=== PATIENT | male | born 1955 | race Caucasian/White ===

== ENCOUNTER 2025-04-08 18:28 | Emergency (ER) | payer BC, MEDICARE ==
--- NOTE | 2025-04-08 18:50 | ED ---
Fever HPI - General Chief Complaint: Fever Stated Complaint: Fall/On blood thinners/Head Injury Time Seen by Provider: 04/08/25 18:49 Source: patient, RN notes reviewed, old records reviewed Mode of arrival: wheelchair Limitations: no limitations - History of Present Illness Initial Comments: This is a 69-year-old male to the ER for evaluation patient was today for evaluation regards to fever history of pneumonia history of weakness increasing weakness altered mental status not feeling well. Mild cough no congestion or runny nose patiently recently had biopsy for prostate cancer having weakness weakness with a near syncopal event syncopal event and a fall. Patient fall hurt left knee complaining of knee pain, Complaint: fever - Related Data Previous Rx's Medication Instructions Recorded Azithromycin [Zithromax] 500 mg PO DAILY #5 tab 04/08/25 Cephalexin [Keflex] 500 mg PO Q6HR #40 cap 04/08/25 Allergies Allergy/AdvReac Type Severity Reaction Status Date / Time No Known Allergies Allergy Verified 04/08/25 18:43 Review of Systems ROS Statement: Those systems with pertinent positive or pertinent negative responses have been documented in the HPI. ROS Other: All systems not noted in ROS Statement are negative. Past Medical History Past Medical History: Diabetes Mellitus, Hyperlipidemia, Hypertension History of Any Multi-Drug Resistant Organisms: None Reported Past Surgical History: Appendectomy Additional Past Surgical History / Comment(s): biopsy for prostate ca. rotator cuff- l. right total knee replacement Past Psychological History: No Psychological Hx Reported Smoking Status: Former smoker Past Alcohol Use History: None Reported Past Drug Use History: None Reported General Exam General appearance: alert, in no apparent distress, anxious Head exam: Present: atraumatic, normocephalic, normal inspection Eye exam: Present: normal appearance, PERRL, EOMI. Absent: scleral icterus, conjunctival injection, periorbital swelling ENT exam: Present: normal exam, mucous membranes moist Neck exam: Present: normal inspection. Absent: tenderness, meningismus, lymphadenopathy Respiratory exam: Present: normal lung sounds bilaterally. Absent: respiratory distress, wheezes, rales, rhonchi, stridor Cardiovascular Exam: Present: regular rate, normal rhythm, normal heart sounds. Absent: systolic murmur, diastolic murmur, rubs, gallop, clicks GI/Abdominal exam: Present: soft, normal bowel sounds. Absent: distended, tenderness, guarding, rebound, rigid Extremities exam: Present: normal inspection, full ROM, normal capillary refill. Absent: tenderness, pedal edema, joint swelling, calf tenderness Back exam: Present: normal inspection Neurological exam: Present: alert, oriented X3, CN II-XII intact Psychiatric exam: Present: normal affect, normal mood Skin exam: Present: warm, dry, intact, normal color. Absent: rash Course Vital Signs 04/08/25 04/08/25 18:33 20:48 Temperature 100.5 F H 98.1 F Pulse Rate 104 H 75 Respiratory 20 18 Rate Blood Pressure 143/77 113/59 O2 Sat by Pulse 94 L 95 Oximetry - Reevaluation(s) Reevaluation #1: 04/08/25 19:45 Medical records reviewed Reevaluation #2: 04/08/25 20:27 Patient's symptoms are improving here in the ER Reevaluation #3: 04/08/25 20:27 Patient informed of results and questions answered Reevaluation #4: Was pt. sent in by a medical professional or institution (, PA, [facility] [employer], urgent care, hospital, or [facility]...) When possible be specific @ -no Did you speak to anyone other than the patient for history (EMS, parent, family, police, friend...)? What history was obtained from this source @ -no Did you review nursing and triage notes (agree or disagree)? Why? @ -agree Are old charts reviewed (outside hosp., previous admission, EMS record, old EKG, old radiological studies, urgent care reports/EKG's, [facility] records)? Report findings @ -yes Differential Diagnosis (chest pain, altered mental status, abdominal pain women, abdominal pain men, vaginal bleeding, weakness, fever, dyspnea, syncope, headache, dizziness, GI bleed, back pain, seizure, CVA, palpatations, mental health, musculoskeletal)? @ -prior EKG interpreted by me (3pts min.). @ -yes X-rays interpreted by me (1pt min.). @ -yes negative for acute disease CT interpreted by me (1pt min.). @ -no U/S interpreted by me (1pt. min.). @ -no What testing was considered but not performed or refused? (CT, X-rays, U/S, labs)? Why? @ -none What meds were considered but not given or refused? Why? @ -none Did you discuss the management of the patient with other professionals (professionals i.e. , PA, [employer], lab, RT, psych nurse, rn social services, house designer, teacher, general service officer, comp field case manager)? Give summary @ -no Was smoking cessation discussed for >3mins.? @ -no Was critical care preformed (if so, how long)? @ -no Were there social determinants of health that impacted care today? How? (Homelessness, low income, unemployed, alcoholism, drug addiction, transportation, low edu. Level, literacy, decrease access to med. care, [facility], rehab)? @ -none Was there de-escalation of care discussed even if they declined (Discuss DNR or withdrawal of care, Hospice)? DNR status @ -no What co-morbidities impacted this encounter? (DM, HTN, Smoking, COPD, CAD, Cancer, CVA, ARF, Chemo, Hep., AIDS, mental health diagnosis, sleep apnea, morbid obesity)? @ -none Was patient admitted / discharged? Hospital course, mention meds given and route, prescriptions, significant lab abnormalities, going to OR and other pertinent info. @ - Undiagnosed new problem with uncertain prognosis? @ -no Drug Therapy requiring intensive monitoring for toxicity (Heparin, Nitro, Insulin, Cardizem)? @ -no Were any procedures done? @ -no Diagnosis/symptom? @ - Acute, or Chronic, or Acute on Chronic? @ -Acute Uncomplicated (without systemic symptoms) or Complicated (systemic symptoms)? @ -Complicated Side effects of treatment? @ -no Exacerbation, Progression, or Severe Exacerbation? @ -exacerbation Poses a threat to life or bodily function? How? (Chest pain, [place], [place], pneumonia, PE, COPD, DKA, ARF, appy, cholecystitis, CVA, Diverticulitis, Homicidal, Suicidal, threat to staff... and all critical care pts) @ -yes Reevaluation #5: Differential Fever: Pneumonia, viral URI, endocarditis, myocarditis, pericarditis, otitis, sinusiti s, peritonsillar Abscess, retropharyngeal Abscess, epiglottitis, peritonitis, appendicitis, Carla cystitis, diverticulitis, hepatitis, colitis, UTI, PID, TOA, pyelonephritis, prostatitis, epididymitis, meningitis, encephalitis, pulmonary embolism, CVA, thyroid storm, pancreatitis, adrenal crisis, cavernous sinus thrombosis, this is not meant to be an all-inclusive list. - Consultations Consultation #1: Spoke with [facility] who agrees to admit this patient Medical Decision Making - Medical Decision Making 69 male to be admitted for significant pneumonia fever with pneumonia - Lab Data Result diagrams: 04/08/25 19:14 04/08/25 19:14 Lab Results 04/08/25 04/08/25 04/08/25 Range/Units 19:14 19:14 19:14 WBC 10.33 H (4.50-10.00) 10*3/uL RBC 5.15 (4.40-5.60) 10*6/uL Hgb 15.0 (13.0-17.0) g/dL Hct 43.0 (39.6-50.0) % MCV 83.5 (80.0-97.0) fL MCH 29.1 (27.0-32.0) pg MCHC 34.9 (32.0-37.0) g/dL Plt Count 348 (140-440) 10*3/uL MPV 9.9 (9.5-12.2) fL Immature Gran % (Auto) 1.1 % Neutrophils % 74.4 % Lymphocytes % 7.6 % Monocytes % 15.3 % Eosinophils % 0.1 % Basophils % 1.5 % Immature Gran # 0.11 H (0.00-0.04) 10*3/uL Neutrophils # 7.69 (1.80-7.70) 10*3/uL Lymphocytes # 0.79 L (0.90-5.00) 10*3/uL Monocytes # 1.58 H (0.20-1.00) 10*3/uL Eosinophils # 0.01 L (0.04-0.35) 10*3/uL Basophils # 0.15 H (0.00-0.10) 10*3/uL PT 10.8 (10.0-12.5) sec INR 1.0 (<1.2) APTT 24.9 (22.0-30.0) sec Sodium (137-145) mmol/L Potassium (3.5-5.1) mmol/L Chloride (98-107) mmol/L Carbon Dioxide (22-30) mmol/L Anion Gap mmol/L BUN (9-20) mg/dL Creatinine (0.66-1.25) mg/dL Est GFR (CKD-EPI)AfAm (>60 ml/min/1.73 sqM) Est GFR (CKD-EPI)NonAf (>60 ml/min/1.73 sqM) Glucose (74-99) mg/dL Plasma Lactic Acid Manjinder (0.7-2.0) mmol/L Calcium (8.4-10.2) mg/dL Phosphorus (2.5-4.5) mg/dL Magnesium (1.6-2.3) mg/dL Total Bilirubin (0.2-1.3) mg/dL AST (17-59) U/L ALT (4-49) U/L Alkaline Phosphatase (38-126) U/L Troponin I (0.000-0.034) ng/mL NT-Pro-B Natriuret Pep pg/mL Total Protein (6.3-8.2) g/dL Albumin (3.5-5.0) g/dL TSH (0.465-4.680) mIU/L Urine Color Urine Appearance (Clear) Urine pH (5.0-8.0) Ur Specific [place] (1.001-1.035) Urine Protein (Negative) Urine Glucose (UA) (Negative) Urine Ketones (Negative) Urine Blood (Negative) Urine Nitrite (Negative) Urine Bilirubin (Negative) Urine Urobilinogen (<2.0) mg/dL Ur Leukocyte Esterase (Negative) Urine RBC (0-5) /hpf Urine WBC (0-5) /hpf Urine Bacteria (None) /hpf Urine Mucus (None) /hpf Influenza Type A (PCR) Not Detected (Not Detectd) Influenza Type B (PCR) Not Detected (Not Detectd) RSV (PCR) Not Detected (Not Detectd) SARS-CoV-2 (PCR) Not Detected (Not Detectd) 04/08/25 04/08/25 04/08/25 Range/Units 19:14 19:14 19:14 WBC (4.50-10.00) 10*3/uL RBC (4.40-5.60) 10*6/uL Hgb (13.0-17.0) g/dL Hct (39.6-50.0) % MCV (80.0-97.0) fL MCH (27.0-32.0) pg MCHC (32.0-37.0) g/dL Plt Count (140-440) 10*3/uL MPV (9.5-12.2) fL Immature Gran % (Auto) % Neutrophils % % Lymphocytes % % Monocytes % % Eosinophils % % Basophils % % Immature Gran # (0.00-0.04) 10*3/uL Neutrophils # (1.80-7.70) 10*3/uL Lymphocytes # (0.90-5.00) 10*3/uL Monocytes # (0.20-1.00) 10*3/uL Eosinophils # (0.04-0.35) 10*3/uL Basophils # (0.00-0.10) 10*3/uL PT (10.0-12.5) sec INR (<1.2) APTT (22.0-30.0) sec Sodium 133 L (137-145) mmol/L Potassium 3.5 (3.5-5.1) mmol/L Chloride 95 L (98-107) mmol/L Carbon Dioxide 28 (22-30) mmol/L Anion Gap 10 mmol/L BUN 23 H (9-20) mg/dL Creatinine 0.81 (0.66-1.25) mg/dL Est GFR (CKD-EPI)AfAm >90 (>60 ml/min/1.73 sqM) Est GFR (CKD-EPI)NonAf 89 (>60 ml/min/1.73 sqM) Glucose 121 H (74-99) mg/dL Plasma Lactic Acid Manjinder 1.7 (0.7-2.0) mmol/L Calcium 10.7 H (8.4-10.2) mg/dL Phosphorus 2.8 (2.5-4.5) mg/dL Magnesium 2.0 (1.6-2.3) mg/dL Total Bilirubin 1.2 (0.2-1.3) mg/dL AST 134 H (17-59) U/L ALT 99 H (4-49) U/L Alkaline Phosphatase 100 (38-126) U/L Troponin I <0.012 (0.000-0.034) ng/mL NT-Pro-B Natriuret Pep 45 pg/mL Total Protein 7.2 (6.3-8.2) g/dL Albumin 4.1 (3.5-5.0) g/dL TSH 0.992 (0.465-4.680) mIU/L Urine Color Urine Appearance (Clear) Urine pH (5.0-8.0) Ur Specific [place] (1.001-1.035) Urine Protein (Negative) Urine Glucose (UA) (Negative) Urine Ketones (Negative) Urine Blood (Negative) Urine Nitrite (Negative) Urine Bilirubin (Negative) Urine Urobilinogen (<2.0) mg/dL Ur Leukocyte Esterase (Negative) Urine RBC (0-5) /hpf Urine WBC (0-5) /hpf Urine Bacteria (None) /hpf Urine Mucus (None) /hpf Influenza Type A (PCR) (Not Detectd) Influenza Type B (PCR) (Not Detectd) RSV (PCR) (Not Detectd) SARS-CoV-2 (PCR) (Not Detectd) 04/08/25 Range/Units 19:29 WBC (4.50-10.00) 10*3/uL RBC (4.40-5.60) 10*6/uL Hgb (13.0-17.0) g/dL Hct (39.6-50.0) % MCV (80.0-97.0) fL MCH (27.0-32.0) pg MCHC (32.0-37.0) g/dL Plt Count (140-440) 10*3/uL MPV (9.5-12.2) fL Immature Gran % (Auto) % Neutrophils % % Lymphocytes % % Monocytes % % Eosinophils % % Basophils % % Immature Gran # (0.00-0.04) 10*3/uL Neutrophils # (1.80-7.70) 10*3/uL Lymphocytes # (0.90-5.00) 10*3/uL Monocytes # (0.20-1.00) 10*3/uL Eosinophils # (0.04-0.35) 10*3/uL Basophils # (0.00-0.10) 10*3/uL PT (10.0-12.5) sec INR (<1.2) APTT (22.0-30.0) sec Sodium (137-145) mmol/L Potassium (3.5-5.1) mmol/L Chloride (98-107) mmol/L Carbon Dioxide (22-30) mmol/L Anion Gap mmol/L BUN (9-20) mg/dL Creatinine (0.66-1.25) mg/dL Est GFR (CKD-EPI)AfAm (>60 ml/min/1.73 sqM) Est GFR (CKD-EPI)NonAf (>60 ml/min/1.73 sqM) Glucose (74-99) mg/dL Plasma Lactic Acid Manjinder (0.7-2.0) mmol/L Calcium (8.4-10.2) mg/dL Phosphorus (2.5-4.5) mg/dL Magnesium (1.6-2.3) mg/dL Total Bilirubin (0.2-1.3) mg/dL AST (17-59) U/L ALT (4-49) U/L Alkaline Phosphatase (38-126) U/L Troponin I (0.000-0.034) ng/mL NT-Pro-B Natriuret Pep pg/mL Total Protein (6.3-8.2) g/dL Albumin (3.5-5.0) g/dL TSH (0.465-4.680) mIU/L Urine Color Yellow Urine Appearance Cloudy (Clear) Urine pH 6.0 (5.0-8.0) Ur Specific [place] 1.021 (1.001-1.035) Urine Protein 1+ H (Negative) Urine Glucose (UA) 2+ H (Negative) Urine Ketones Negative (Negative) Urine Blood Moderate H (Negative) Urine Nitrite Positive (Negative) Urine Bilirubin Negative (Negative) Urine Urobilinogen <2.0 (<2.0) mg/dL Ur Leukocyte Esterase Large H (Negative) Urine RBC 44 H (0-5) /hpf Urine WBC >182 H (0-5) /hpf Urine Bacteria Many H (None) /hpf Urine Mucus Occasional H (None) /hpf Influenza Type A (PCR) (Not Detectd) Influenza Type B (PCR) (Not Detectd) RSV (PCR) (Not Detectd) SARS-CoV-2 (PCR) (Not Detectd) - EKG Data -: EKG Interpreted by Me (EKG is sinus 93 CO 153 QRS 146 QTc 450) - Radiology Data Radiology results: report reviewed (Chest x-ray is positive for pneumonia), image reviewed Disposition Clinical Impression: Fever, Pneumonia, Syncope, Weakness, UTI (urinary tract infection) Disposition: HOME SELF-CARE Condition: Fair Is patient prescribed a controlled substance at d/c from ED?: No Time of Disposition: 20:20
[2025-04-08 19:35] LABS: Basophils # (A) 0.15 10*3/uL (0.00-0.10); Basophils % (A) 1.5 %; Eosinophils # (A) 0.01 10*3/uL (0.04-0.35); Eosinophils % (A) 0.1 %; Lymphocytes # (A) 0.79 10*3/uL (0.90-5.00); Lymphocytes % (A) 7.6 %; MCH 29.1 pg (27.0-32.0); MCHC 34.9 g/dL (32.0-37.0); MCV 83.5 fL (80.0-97.0); Mean Platelet Volume 9.9 fL (9.5-12.2); Monocytes # (A) 1.58 10*3/uL (0.20-1.00); Monocytes % (A) 15.3 %; Neutrophils # (A) 7.69 10*3/uL (1.80-7.70); Neutrophils % (A) 74.4 %; Platelet Count 348 10*3/uL (140-440); RBC 5.15 10*6/uL (4.40-5.60); RDW 14.9 % (11.5-14.5); WBC 10.33 10*3/uL (4.50-10.00)
[2025-04-08] MEDS: SODIUM CHLORIDE 0.9% 1,000 ML IV ONE (19:39)
[2025-04-08] MEDS: ACETAMINOPHEN IV (For NPO) 1,000 MG in EMPTY BAG 1 BAG IVPB STA (19:39)
[2025-04-08 19:56] LABS: Partial Thromboplastin Time 24.9 sec (22.0-30.0); Prothrombin Time 10.8 sec (10.0-12.5)
[2025-04-08 20:03] LABS: ALT 99 U/L (4-49); AST 134 U/L (17-59); African American GFR (CKD) >90 (>60 ml/min/1.73 sqM); Albumin 4.1 g/dL (3.5-5.0); Alkaline Phosphatase 100 U/L (38-126); Anion Gap 10 mmol/L; Blood Urea Nitrogen 23 mg/dL (9-20); Calcium 10.7 mg/dL (8.4-10.2); Carbon Dioxide 28 mmol/L (22-30); Chloride 95 mmol/L (98-107); Glucose 121 mg/dL (74-99); Non-African American GFR(CKD) 89 (>60 ml/min/1.73 sqM); Phosphorus 2.8 mg/dL (2.5-4.5); Potassium 3.5 mmol/L (3.5-5.1); Sodium 133 mmol/L (137-145); Total Bilirubin 1.2 mg/dL (0.2-1.3); Total Protein 7.2 g/dL (6.3-8.2)
[2025-04-08 20:10] LABS: Influenza A Not Detected (Not Detectd); Influenza B Not Detected (Not Detectd); RSV Not Detected (Not Detectd)
[2025-04-08 20:11] LABS: NT-Pro-B-Type Natriuretic Pept 45 pg/mL
[2025-04-08] MEDS: IBUPROFEN IV 800 MG in SODIUM CHLORIDE 0.9% 250 ML IV ONE (20:11)
--- NOTE | 2025-04-08 20:12 | XR ---
EXAMINATION TYPE: XR chest 2V DATE OF EXAM: 04/08/2025 7:33 PM COMPARISON: None CLINICAL INDICATION: Male, 69 years old with history of Weakness; [facility] TECHNIQUE: XR chest 2V Frontal and lateral views of the chest. FINDINGS: Lungs/Pleura: Right lower lobe airspace opacities. There is no evidence of pleural effusion, focal co nsolidation, or pneumothorax. Pulmonary vascularity: Unremarkable. Heart/mediastinum: Cardiomediastinal silhouette is unremarkable. Musculoskeletal: No acute osseous pathology. IMPRESSION: Right lower lobe airspace opacities correlate for pneumonia. [facility], , 04/08/2025 8:10 PM
--- NOTE | 2025-04-08 20:14 | XR ---
EXAMINATION TYPE: XR knee complete RT DATE OF EXAM: 04/08/2025 7:33 PM COMPARISON: None CLINICAL INDICATION: Male, 69 years old with history of PAIN; [facility], pain TECHNIQUE: XR knee complete RT 3 views submitted. FINDINGS: Status post total knee arthroplasty changes with hardware in appropriate alignment and in tact. No evidence of fracture. IMPRESSION: Status post total knee arthroplasty changes with hardware intact and appropriate alignment. No fractu res identified. [facility], , 04/08/2025 8:12 PM
[2025-04-08 20:23] LABS: Appearance,Urine Cloudy (Clear); Bacteria,Urine Many /hpf; Bilirubin,Urine Negative (Negative); Blood,Urine Moderate (Negative); Color,Urine Yellow; Glucose,Urine (UA) 2+ (Negative); Ketones,Urine Negative (Negative); Leukocyte Esterase,Urine Large (Negative); Mucus,Urine Occasional /hpf; Nitrite,Urine Positive (Negative); Protein,Urine 1+ (Negative); RBC,Urine 44 /hpf (0-5); Specific Gravity,Urine 1.021 (1.001-1.035); Urobilinogen,Urine <2.0 mg/dL (<2.0); WBC,Urine >182 /hpf (0-5)
[2025-04-08] MEDS ORDERED: IPRATROPIUM-ALBUTEROL 3 ML NEB INHALATION PRN (20:25)
[2025-04-08] MEDS ORDERED: PNEUMONIA PROTOCOL UTILIZED 1 EACH MISC PO PRN (20:25)
[2025-04-08 20:51] VITALS: RESP 18
[2025-04-08] MEDS: AZITHROMYCIN 500 MG in SODIUM CHLORIDE 0.9% 250 ML IVPB STA (21:18)
[2025-04-08] MEDS ORDERED: ACETAMINOPHEN TAB 325 MG TAB PO PRN (21:37)
[2025-04-08] MEDS: CEPHALEXIN 500MG STARTER PACK 4 CAP BTL PO STA (22:34)
[2025-04-08 22:44] VITALS: BP 111/58; PULSE 81; TEMP 98.6
[2025-04-09] MEDS ORDERED: AZITHROMYCIN 500 MG in SODIUM CHLORIDE 0.9% 250 ML IVPB SCH (21:00)
== END 2025-04-08 23:00 | disposition home or self-care (01) ==
LOC: EC 18:28 → UNDOADMIN 20:26 → 5NMEDONC 20:26 → EC 23:00 → UNDODISIN 23:00
DX: R55 Syncope and collapse (principal); R53.1 Weakness; J18.9 Pneumonia, unspecified organism; N39.0 Urinary tract infection, site not specified; M25.562 Pain in left knee
CPT/HCPCS: 96365; 96367; 99284; 36415; 93005; 83880; 80053; 87449; 83605; 83735; 84100; 84443; 84484; 85025; 85610; 85730; 81001; 87040; 87636; 73562; 71046; J0456; J0696; J0131; J1741

== ENCOUNTER 2025-04-09 20:11 | Inpatient (IN) | payer MEDICARE ==
--- NOTE | 2025-04-09 20:31 | ED ---
Recheck HPI - General Chief Complaint: Recheck/Abnormal Lab/Rx Stated Complaint: bacteria in his blood Time Seen by Provider: 04/09/25 20:14 Source: patient, EMS, RN notes reviewed, old records reviewed Mode of arrival: EMS Limitations: no limitations - History of Present Illness Initial Comments: This is a 69-year-old male to the ER for evaluation of fever weakness recent diagnosis of UTI and pneumonia was told to come back to the ER for evaluation of positive blood cultures MD Complaint: abnormal lab (positive blood cultures) Returns Today for: Called Because of Abnormal Lab/Test Symptoms Since Prior Visit: no new symptoms Associated Symptoms: none Treatments Prior to Arrival: other - Related Data Home Medications Medication Instructions Recorded Confirmed Atorvastatin [Lipitor] 20 mg PO HS 04/10/25 04/10/25 Sildenafil Citrate 100 mg PO DAILY PRN 04/10/25 04/10/25 Silodosin [Rapaflo] 8 mg PO DAILY 04/10/25 04/10/25 Telmisartan [Micardis] 40 mg PO DAILY PRN 04/10/25 04/10/25 hydroCHLOROthiazide [Hydrodiuril] 12.5 mg PO DAILY 04/10/25 04/10/25 metFORMIN HCL [Glucophage] 500 mg PO DAILY 04/10/25 04/10/25 Previous Rx's Medication Instructions Recorded Amoxic-Pot Clav 875-125Mg 1 tab PO Q12HR 7 Days #14 tab 04/13/25 [Augmentin 875-125] Allergies Allergy/AdvReac Type Severity Reaction Status Date / Time No Known Allergies Allergy Verified 04/10/25 09:33 Review of Systems ROS Statement: Those systems with pertinent positive or pertinent negative responses have been documented in the HPI. ROS Other: All systems not noted in ROS Statement are negative. Past Medical History Past Medical History: Diabetes Mellitus, Hyperlipidemia, Hypertension History of Any Multi-Drug Resistant Organisms: None Reported Past Surgical History: Appendectomy Additional Past Surgical History / Comment(s): biopsy for prostate ca. rotator cuff- l. right total knee replacement Past Psychological History: No Psychological Hx Reported Smoking Status: Former smoker Past Alcohol Use History: None Reported Past Drug Use History: None Reported General Exam Limitations: no limitations General appearance: alert, in no apparent distress Head exam: Present: atraumatic, normocephalic, normal inspection Eye exam: Present: normal appearance, PERRL, EOMI. Absent: scleral icterus, conjunctival injection, periorbital swelling ENT exam: Present: normal exam, mucous membranes moist Neck exam: Present: normal inspection. Absent: tenderness, meningismus, lymphadenopathy Respiratory exam: Present: normal lung sounds bilaterally. Absent: respiratory distress, wheezes, rales, rhonchi, stridor Cardiovascular Exam: Present: regular rate, normal rhythm, normal heart sounds. Absent: systolic murmur, diastolic murmur, rubs, gallop, clicks GI/Abdominal exam: Present: soft, normal bowel sounds. Absent: distended, tenderness, guarding, rebound, rigid Extremities exam: Present: normal inspection, full ROM, normal capillary refill. Absent: tenderness, pedal edema, joint swelling, calf tenderness Back exam: Present: normal inspection Neurological exam: Present: alert, oriented X3, CN II-XII intact Psychiatric exam: Present: normal affect, normal mood Skin exam: Present: warm, dry, intact, normal color. Absent: rash Course Vital Signs 04/09/25 04/09/25 04/09/25 20:13 22:00 23:30 Temperature 97.4 F L Pulse Rate 70 92 82 Respiratory 18 24 20 Rate Blood Pressure 150/76 167/110 166/97 O2 Sat by Pulse 96 96 96 Oximetry - Reevaluation(s) Reevaluation #1: 04/09/25 21:06 Medical records reviewed Chart yesterday showing positive pneumonia positive UTI Reevaluation #2: 04/09/25 21:06 Patient symptoms improving here in the ER Reevaluation #3: 04/09/25 21:06 Patient informed of results and questions answered Reevaluation #4: Was pt. sent in by a medical professional or institution (, PA, LYE TREATER, urgent care, hospital, or care home...) When possible be specific @ -no Did you speak to anyone other than the patient for history (EMS, parent, family, police, friend...)? What history was obtained from this source @ -no Did you review nursing and triage notes (agree or disagree)? Why? @ -agree Are old charts reviewed (outside hosp., previous admission, EMS record, old EKG, old radiological studies, urgent care reports/EKG's, care home records)? Report findings @ -yes Differential Diagnosis (chest pain, altered mental status, abdominal pain women, abdominal pain men, vaginal bleeding, weakness, fever, dyspnea, syncope, headache, dizziness, GI bleed, back pain, seizure, CVA, palpatations, mental health, musculoskeletal)? @ -prior EKG interpreted by me (3pts min.). @ -yes X-rays interpreted by me (1pt min.). @ -yes negative for acute disease CT interpreted by me (1pt min.). @ -no U/S interpreted by me (1pt. min.). @ -no What testing was considered but not performed or refused? (CT, X-rays, U/S, labs)? Why? @ -none What meds were considered but not given or refused? Why? @ -none Did you discuss the management of the patient with other professionals (professionals i.e. , PA, LYE TREATER, lab, RT, psych nurse, social media sr strategy manager, mold operator, teacher, animal control officer, wrapper caser)? Give summary @ -no Was smoking cessation discussed for >3mins.? @ -no Was critical care preformed (if so, how long)? @ -no Were there social determinants of health that impacted care today? How? (Homelessness, low income, unemployed, alcoholism, drug addiction, transportation, low edu. Level, literacy, decrease access to med. care, residential, rehab)? @ -none Was there de-escalation of care discussed even if they declined (Discuss DNR or withdrawal of care, Hospice)? DNR status @ -no What co-morbidities impacted this encounter? (DM, HTN, Smoking, COPD, CAD, C ancer, CVA, ARF, Chemo, Hep., AIDS, mental health diagnosis, sleep apnea, morbid obesity)? @ -none Was patient admitted / discharged? Hospital course, mention meds given and route, prescriptions, significant lab abnormalities, going to OR and other pertinent info. @ - 69-year-old male to the ER for evaluation patient was today for evaluation of severe fever, known UTI and pneumonia, bacteremia on cultures patient will be admitted for IV antibiotics Admitted Undiagnosed new problem with uncertain prognosis? @ -no Drug Therapy requiring intensive monitoring for toxicity (Heparin, Nitro, Insul in, Cardizem)? @ -no Were any procedures done? @ -no Diagnosis/symptom? @ -UTI sepsis bacteremia Acute, or Chronic, or Acute on Chronic? @ -Acute Uncomplicated (without systemic symptoms) or Complicated (systemic symptoms)? @ -Complicated Side effects of treatment? @ -no Exacerbation, Progression, or Severe Exacerbation? @ -exacerbation Poses a threat to life or bodily function? How? (Chest pain, [place], [place], pneumonia, PE, COPD, DKA, ARF, appy, cholecystitis, CVA, Diverticulitis, Homicidal, Suicidal, threat to staff... and all critical care pts) @ -yes severe infection Reevaluation #5: Differential Fever: Pneumonia, viral URI, endocarditis, myocarditis, pericarditis, otitis, sinusitis, peritonsillar Abscess, retropharyngeal Abscess, epiglottitis, peritonitis, appendicitis, Carla cystitis, diverticulitis, hepatitis, colitis, UTI, PID, TOA, pyelonephritis, prostatitis, epididymitis, meningitis, encephalitis, pulmonary embolism, CVA, thyroid storm, pancreatitis, adrenal crisis, cavernous sinus thrombosis, this is not meant to be an all-inclusive list. - Consultations Consultation #1: Spoke with garima who agrees to admit this patient Medical Decision Making - Medical Decision Making P=69-year-old male to the ER for evaluation patient was today for evaluation of severe fever, known UTI and pneumonia, bacteremia on cultures patient will be admitted for IV antibiotics - Lab Data Result diagrams: 04/13/25 02:56 04/13/25 02:56 Lab Results 04/09/25 04/09/25 04/09/25 Range/Units 20:47 20:47 20:47 WBC 13.00 H (4.50-10.00) 10*3/uL RBC 5.21 (4.40-5.60) 10*6/uL Hgb 15.0 (13.0-17.0) g/dL Hct 42.5 (39.6-50.0) % MCV 81.6 (80.0-97.0) fL MCH 28.8 (27.0-32.0) pg MCHC 35.3 (32.0-37.0) g/dL Plt Count 426 (140-440) 10*3/uL MPV 11.0 (9.5-12.2) fL Immature Gran % (Auto) 1.0 % Neutrophils % 78.4 % Lymphocytes % 8.5 % Monocytes % 10.7 % Eosinophils % 0.2 % Basophils % 1.2 % Immature Gran # 0.13 H (0.00-0.04) 10*3/uL Neutrophils # 10.18 H (1.80-7.70) 10*3/uL Lymphocytes # 1.11 (0.90-5.00) 10*3/uL Monocytes # 1.39 H (0.20-1.00) 10*3/uL Eosinophils # 0.03 L (0.04-0.35) 10*3/uL Basophils # 0.16 H (0.00-0.10) 10*3/uL PT 11.0 (10.0-12.5) sec INR 1.0 (<1.2) APTT 25.1 (22.0-30.0) sec Sodium 139 (137-145) mmol/L Potassium 4.2 (3.5-5.1) mmol/L Chloride 103 (98-107) mmol/L Carbon Dioxide 21 L (22-30) mmol/L Anion Gap 15 mmol/L BUN 26 H (9-20) mg/dL Creatinine 0.70 (0.66-1.25) mg/dL Est GFR (CKD-EPI)AfAm >90 (>60 ml/min/1.73 sqM) Est GFR (CKD-EPI)NonAf >90 (>60 ml/min/1.73 sqM) Glucose 179 H (74-99) mg/dL Plasma Lactic Acid Manjinder (0.7-2.0) mmol/L Calcium 10.6 H (8.4-10.2) mg/dL Phosphorus 3.7 (2.5-4.5) mg/dL Magnesium 2.1 (1.6-2.3) mg/dL Total Bilirubin 1.3 (0.2-1.3) mg/dL AST 136 H (17-59) U/L ALT 139 H (4-49) U/L Alkaline Phosphatase 107 (38-126) U/L Troponin I (0.000-0.034) ng/mL C-Reactive Protein 15.3 H (<1.0) mg/dL Total Protein 7.5 (6.3-8.2) g/dL Albumin 4.2 (3.5-5.0) g/dL 04/09/25 04/09/25 Range/Units 20:47 20:47 WBC (4.50-10.00) 10*3/uL RBC (4.40-5.60) 10*6/uL Hgb (13.0-17.0) g/dL Hct (39.6-50.0) % MCV (80.0-97.0) fL MCH (27.0-32.0) pg MCHC (32.0-37.0) g/dL Plt Count (140-440) 10*3/uL MPV (9.5-12.2) fL Immature Gran % (Auto) % Neutrophils % % Lymphocytes % % Monocytes % % Eosinophils % % Basophils % % Immature Gran # (0.00-0.04) 10*3/uL Neutrophils # (1.80-7.70) 10*3/uL Lymphocytes # (0.90-5.00) 10*3/uL Monocytes # (0.20-1.00) 10*3/uL Eosinophils # (0.04-0.35) 10*3/uL Basophils # (0.00-0.10) 10*3/uL PT (10.0-12.5) sec INR (<1.2) APTT (22.0-30.0) sec Sodium (137-145) mmol/L Potassium (3.5-5.1) mmol/L Chloride (98-107) mmol/L Carbon Dioxide (22-30) mmol/L Anion Gap mmol/L BUN (9-20) mg/dL Creatinine (0.66-1.25) mg/dL Est GFR (CKD-EPI)AfAm (>60 ml/min/1.73 sqM) Est GFR (CKD-EPI)NonAf (>60 ml/min/1.73 sqM) Glucose (74-99) mg/dL Plasma Lactic Acid Manjinder 1.6 (0.7-2.0) mmol/L Calcium (8.4-10.2) mg/dL Phosphorus (2.5-4.5) mg/dL Magnesium (1.6-2.3) mg/dL Total Bilirubin (0.2-1.3) mg/dL AST (17-59) U/L ALT (4-49) U/L Alkaline Phosphatase (38-126) U/L Troponin I <0.012 (0.000-0.034) ng/mL C-Reactive Protein (<1.0) mg/dL Total Protein (6.3-8.2) g/dL Albumin (3.5-5.0) g/dL - EKG Data -: EKG Interpreted by Me (EKG sinus 90 WA 172 QRS 145 QTc 454) - Radiology Data Radiology results: report reviewed (Chest x-ray shows negative for acute disease), image reviewed Disposition Clinical Impression: Fever, UTI (urinary tract infection), Pneumonia, Bacteremia, Weakness Disposition: ADMITTED IP TO THIS HOSP Condition: Stable Is patient prescribed a controlled substance at d/c from ED?: No Time of Disposition: 21:00
[2025-04-09] MEDS: SODIUM CHLORIDE 0.9% 1,000 ML IV SCH ×2 (20:48→21:43)
[2025-04-09] MEDS ORDERED: ONDANSETRON 4 MG/2 ML VIAL IVP PRN (21:03)
[2025-04-09] MEDS ORDERED: NALOXONE 0.4 MG/ML 1 ML VIAL IV PRN (21:03)
[2025-04-09 21:05] LABS: Basophils # (A) 0.16 10*3/uL (0.00-0.10); Basophils % (A) 1.2 %; Eosinophils # (A) 0.03 10*3/uL (0.04-0.35); Eosinophils % (A) 0.2 %; HCT 42.5 % (39.6-50.0); Lymphocytes # (A) 1.11 10*3/uL (0.90-5.00); Lymphocytes % (A) 8.5 %; MCH 28.8 pg (27.0-32.0); MCHC 35.3 g/dL (32.0-37.0); MCV 81.6 fL (80.0-97.0); Monocytes # (A) 1.39 10*3/uL (0.20-1.00); Monocytes % (A) 10.7 %; Neutrophils # (A) 10.18 10*3/uL (1.80-7.70); Neutrophils % (A) 78.4 %; Platelet Count 426 10*3/uL (140-440); RBC 5.21 10*6/uL (4.40-5.60)
[2025-04-09 21:17] LABS: Partial Thromboplastin Time 25.1 sec (22.0-30.0)
--- NOTE | 2025-04-09 21:22 | XR ---
EXAMINATION TYPE: XR chest 2V DATE OF EXAM: 04/09/2025 9:13 PM COMPARISON: Chest radiographs from 04/08/2025. CLINICAL INDICATION: Male, 69 years old with history of Weakness; TECHNIQUE: XR chest 2V Frontal and lateral views of the chest. FINDINGS: Lungs/Pleura: There is no evidence of pleural effusion, focal consolidation, or pneumothorax. Pulmonary vascularity: Unremarkable. Heart/mediastinum: Cardiomediastinal silhouette is unremarkable. Musculoskeletal: No acute osseous pathology. IMPRESSION: No acute cardiopulmonary disease/process. [facility], , 04/09/2025 9:19 PM
[2025-04-09] MEDS: LEVOFLOXACIN 750MG-D5W PMX 750 MG in DEXTROSE/WATER 1 150ML.BAG IVPB SCH (21:43)
[2025-04-09 22:22] LABS: ALT 139 U/L (4-49); AST 136 U/L (17-59); African American GFR (CKD) >90 (>60 ml/min/1.73 sqM); Albumin 4.2 g/dL (3.5-5.0); Alkaline Phosphatase 107 U/L (38-126); Anion Gap 15 mmol/L; Blood Urea Nitrogen 26 mg/dL (9-20); Calcium 10.6 mg/dL (8.4-10.2); Carbon Dioxide 21 mmol/L (22-30); Chloride 103 mmol/L (98-107); Glucose 179 mg/dL (74-99); Magnesium 2.1 mg/dL (1.6-2.3); Non-African American GFR(CKD) >90 (>60 ml/min/1.73 sqM); Phosphorus 3.7 mg/dL (2.5-4.5); Potassium 4.2 mmol/L (3.5-5.1); Sodium 139 mmol/L (137-145); Total Bilirubin 1.3 mg/dL (0.2-1.3); Total Protein 7.5 g/dL (6.3-8.2)
[2025-04-09 22:33] LABS: C Reactive Protein 15.3 mg/dL (<1.0)
[2025-04-10] MEDS: MORPHINE SULFATE 4 MG/ML SYRINGE IV PRN (00:18)
[2025-04-10] MEDS: PIPERACILLIN-TAZOBACTAM 3.375 GM in SODIUM CHLORIDE 0.9% 100 ML IVPB SCH (01:39)
--- NOTE | 2025-04-10 02:48 | P.HPIM ---
History of Present Illness H&P Date: 04/09/25 Chief Complaint: Bacteria in blood, urinary tract infection, and pain 69 y o male patient who recently underwent a prostate biopsy. He presented to the hospital with bacteria in his blood received a phone call from the ED asking him to come back to the hospital. He was seen 2 days ago in the ER and was diagnosed with a urinary tract infection and possible pneumonia. The patient reports constant urination since the biopsy, with episodes occurring every few minutes. He experienced a fall in the bathroom after the procedure, resulting in bruising on his head, knee, arm, and foot. The patient complains of pain in the lower abdominal area, which subsided after a bowel movement but has since returned. He also notes some rectal bleeding. The patient denies fever, chills, cough, chest pain, or trouble breathing. He reports a decreased appetite. Lives with . Drinks beer occasionally. Uses marijuana gummies occasionally. Uses a vape. Former smoker, quit approximately 10 years ago. Review of systems Constitutional: Denies fever or chills. HEENT: No cough. Cardiovascular: Denies chest pain. Respiratory: Denies trouble breathing. Gastrointestinal: Reports abdominal pain and some rectal bleeding. Genitourinary: Reports frequent urination, sometimes in large amounts, sometimes in small drops. Musculoskeletal: Reports bruising from recent fall. Neurological: No specific symptoms reported. Skin: No specific symptoms reported. on exam Constitutional: No acute distress, conversant, pleasant Eyes: Anicteric sclerae, moist conjunctiva, Pupils equal round reactive to light ENMT: NC/AT Oropharynx clear, no erythema, or exudates Neck: Supple, no masses, or JVD No carotid bruits No thyromegaly Lungs: Clear to auscultation Clear to percussion Normal respiratory effort, no accessory muscle use Cardiovascular: Heart regular in rate and rhythm, No murmurs, gallops, or rubs No peripheral edema Abdominal: Soft Tenderness to deep palpation of the suprapubic region, no guarding, rebound or rigidity Abdomen moving with respiration Normoactive bowel sounds Extremities: No digital cyanosis No clubbing Pedal pulses intact and symmetrical Radial pulses intact and symmetrical No calf tenderness Psychiatric: Alert and oriented to person, place and time Appropriate affect fair judgement Neuro Muscles Strength 5/5 in all 4 extremities Sensation to light touch grossly present throughout Cranial nerves II-XII grossly intact Past Medical History Past Medical History: Diabetes Mellitus, Hyperlipidemia, Hypertension History of Any Multi-Drug Resistant Organisms: None Reported Past Surgical History: Appendectomy, Tonsillectomy Additional Past Surgical History / Comment(s): biopsy for prostate ca. rotator cuff- l. right total knee replacement Past Psychological History: No Psychological Hx Reported Smoking Status: Former smoker Past Alcohol Use History: None Reported Past Drug Use History: None Reported Medications and Allergies Home Medications Medication Instructions Recorded Confirmed Type Azithromycin [Zithromax] 500 mg PO DAILY #5 tab 04/08/25 Rx Cephalexin [Keflex] 500 mg PO Q6HR #40 cap 04/08/25 Rx Allergies Allergy/AdvReac Type Severity Reaction Status Date / Time No Known Allergies Allergy Verified 04/09/25 20:18 Physical Exam Vitals: Vital Signs Temp Pulse Pulse Resp BP BP Pulse Ox 04/09/25 23:57 97.7 F 75 17 141/87 99 04/09/25 23:30 82 20 166/97 96 04/09/25 22:00 92 24 167/110 96 04/09/25 20:13 97.4 F L 70 18 150/76 96 Intake and Output 04/09/25 04/09/25 04/10/25 14:59 22:59 06:59 Other: Weight 99.79 kg 99.79 kg Results CBC & Chem 7: 04/09/25 20:47 04/09/25 20:47 Labs: Abnormal Lab Results - Last 24 Hours (Table) 04/09/25 04/09/25 Range/Units 20:47 20:47 WBC 13.00 H (4.50-10.00) 10*3/uL Immature Gran # 0.13 H (0.00-0.04) 10*3/uL Neutrophils # 10.18 H (1.80-7.70) 10*3/uL Monocytes # 1.39 H (0.20-1.00) 10*3/uL Eosinophils # 0.03 L (0.04-0.35) 10*3/uL Basophils # 0.16 H (0.00-0.10) 10*3/uL Carbon Dioxide 21 L (22-30) mmol/L BUN 26 H (9-20) mg/dL Glucose 179 H (74-99) mg/dL Calcium 10.6 H (8.4-10.2) mg/dL AST 136 H (17-59) U/L ALT 139 H (4-49) U/L C-Reactive Protein 15.3 H (<1.0) mg/dL Assessment and Plan Assessment: 69-year-old male with recent prostate biopsy coming in with urinary tract infection and bacteremia discussed case with ED doctor and accepted the admission for urinary tract infection with bacteremia for IV antibiotics and anticipated stay more than 2 midnights Assessment: 1. Urinary tract infection with bacteremia, likely related to recent prostate biopsy. 2. Abdominal pain, possibly related to UTI or recent biopsy. 3. Rectal bleeding, likely related to recent prostate biopsy. 4. Elevated liver enzymes, newly reported. AST 136 ALT 136 5. History of diabetes, hypertension, and hyperlipidemia. 6. Mild hypercalcemia with calcium level of 10.6 Plan: 1. Initiate IV antibiotics for UTI and bacteremia continue Zosyn., IV fluid hydration normal saline 100 cc/h 2. Monitor vital signs and clinical status for signs of sepsis. 3. Continue pain management as needed. 4. Repeat liver function tests in the morning to trend enzymes. 5. Consider holding cholesterol medication (statin) due to elevated liver enzymes. 6. Perform imaging of the liver if enzymes remain elevated. 7. Monitor for worsening of rectal bleeding; if persists, consider urology consu ltation. 8. Continue current management of chronic conditions (diabetes, hypertension, hyperlipidemia). Insulin sliding scale and resume home blood pressure medications 9. Educate patient on signs of worsening infection and when to seek immediate medical attention. 10. Follow up on blood culture results for targeted antibiotic therapy. 11. Reassess in 24-48 hours for clinical improvement and consideration of transition to oral antibiotics if appropriate. Blood work showing elevated white count 13 unremarkable hemoglobin 15 Sodium 139 potassium 4.2 BUN 26 creatinine 0.7 unremarkable Follow-up repeat calcium level in the morning Follow-up repeat liver enzymes in the morning Check liver ultrasound Full code DVT prophylaxis Lovenox 40 mg subcu daily
[2025-04-10] MEDS ORDERED: DEXTROSE 50% SYRINGE 50 ML IVP PRN ×2 (02:49)
[2025-04-10 03:45] LABS: Basophils # (A) 0.15 10*3/uL (0.00-0.10); Eosinophils # (A) 0.04 10*3/uL (0.04-0.35); Eosinophils % (A) 0.3 %; HCT 42.2 % (39.6-50.0); HGB 14.2 g/dL (13.0-17.0); Lymphocytes # (A) 1.05 10*3/uL (0.90-5.00); MCH 28.4 pg (27.0-32.0); MCHC 33.6 g/dL (32.0-37.0); MCV 84.4 fL (80.0-97.0); Mean Platelet Volume 10.7 fL (9.5-12.2); Monocytes # (A) 1.56 10*3/uL (0.20-1.00); Monocytes % (A) 10.3 %; Neutrophils # (A) 12.13 10*3/uL (1.80-7.70); Neutrophils % (A) 80.4 %; Platelet Count 428 10*3/uL (140-440); RDW 15.5 % (11.5-14.5); WBC 15.08 10*3/uL (4.50-10.00)
[2025-04-10 03:58] LABS: ALT 127 U/L (4-49); AST 110 U/L (17-59); African American GFR (CKD) >90 (>60 ml/min/1.73 sqM); Albumin 3.8 g/dL (3.5-5.0); Alkaline Phosphatase 110 U/L (38-126); Anion Gap 13 mmol/L; Blood Urea Nitrogen 21 mg/dL (9-20); Carbon Dioxide 24 mmol/L (22-30); Chloride 101 mmol/L (98-107); Glucose 132 mg/dL (74-99); Non-African American GFR(CKD) >90 (>60 ml/min/1.73 sqM); Potassium 3.6 mmol/L (3.5-5.1); Sodium 138 mmol/L (137-145); Total Bilirubin 0.9 mg/dL (0.2-1.3); Total Protein 6.8 g/dL (6.3-8.2)
[2025-04-10 06:24] LABS: Glucose,Whole Blood 159 mg/dL (70-110)
[2025-04-10] MEDS: INSULIN LISPRO (HumaLOG) 100 UNIT/ML 10 mL VL SQ SCH (06:45)
[2025-04-10] MEDS: LOSARTAN 50 MG TAB PO SCH (08:30)
[2025-04-10] MEDS: ENOXAPARIN 40 MG/0.4 ML SYRINGE SQ SCH (08:30)
[2025-04-10] MEDS: TAMSULOSIN 0.4 MG CAP.ER.24H PO SCH (08:30)
--- NOTE | 2025-04-10 09:41 | P.PN ---
Subjective Progress Note Date: 04/10/25 Patient complaining of pelvic pain. Blood cultures were growing gram-positive bacilli, likely representing contaminant. On empiric antibiotic therapy until further characterization of blood culture. Infectious disease consult pending. Gen: In NAD, non-toxic HEENT: normocephalic, atraumatic, hearing acuity is intant, mucous membranes moist CVS: perfusing all extremities well, no pitting edema, Respiratory: symmetric chest expansion, no accessory muscle use, GI: soft, NTTP, ND, : no suprapubic tenderness, no CVA tenderness MSK/Derm: no rashes, cyanosis Neuro: CN II-XII intact, no motor weakness, Psych: cooperative, euthymic mood, judgment and insight is intact Hospital course: 69-year-old man with recent prostate biopsy presented for incidental bacteremia found on blood culture. Patient is afebrile and hemodynamically stable. He does have elevated LFTs on exam. No urinalysis is on file. CRP is mildly elevated at 15.3. Chest x-ray shows no acute cardiopulmonary process. Patient was complaining of pelvic pain on day 2 of hospitalization and therefore urology was consulted for further recommendations. Assessment/plan: 69-year-old male with recent prostate biopsy coming in with urinary tract infection and bacteremia discussed case with ED doctor and accepted the admissi on for urinary tract infection with bacteremia for IV antibiotics and anticipated stay more than 2 midnights 1. Urinary tract infection with bacteremia, likely related to recent prostate biopsy. 2. Abdominal pain, possibly related to UTI or recent biopsy. 3. Rectal bleeding, likely related to recent prostate biopsy. 4. Elevated liver enzymes, newly reported. AST 136 ALT 136 5. History of diabetes, hypertension, and hyperlipidemia. 6. Mild hypercalcemia with calcium level of 10.6 Plan: 1. Initiate IV antibiotics for UTI and bacteremia continue Zosyn., IV fluid hydration normal saline 100 cc/h, infectious disease consulted 2. Monitor vital signs and clinical status for signs of sepsis. 3. Continue pain management as needed. 4. Repeat liver function tests in the morning to trend enzymes. 5. Consider holding cholesterol medication (statin) due to elevated liver enzymes. 6. Perform imaging of the liver if enzymes remain elevated. 7. Monitor for worsening of rectal bleeding; if persists, consider urology consultation. 8. Continue current management of chronic conditions (diabetes, hypertension, hyperlipidemia). Insulin sliding scale and resume home blood pressure medications 9. Educate patient on signs of worsening infection and when to seek immediate medical attention. 10. Follow up on blood culture results for targeted antibiotic therapy. 11. Reassess in 24-48 hours for clinical improvement and consideration of transition to oral antibiotics if appropriate. 12. Urology consulted for pelvic pain Full code DVT prophylaxis Lovenox 40 mg subcu daily Objective - Vital Signs Vital signs: Vital Signs Temp 98.0 F 04/10/25 07:51 Pulse 65 04/10/25 07:51 Resp 15 04/10/25 07:51 BP 152/83 04/10/25 07:51 Pulse Ox 95 04/10/25 07:51 FiO2 Intake & Output 04/09/25 04/10/25 04/10/25 18:59 06:59 18:59 Weight 99.79 kg Other: Voiding Method Toilet # Voids 3 - Labs CBC & Chem 7: 04/10/25 02:39 04/10/25 02:39 Labs: Abnormal Lab Results - Last 24 Hours (Table) 04/09/25 04/09/25 04/10/25 Range/Units 20:47 20:47 02:39 WBC 13.00 H 15.08 H (4.50-10.00) 10*3/uL Immature Gran # 0.13 H 0.15 H (0.00-0.04) 10*3/uL Neutrophils # 10.18 H 12.13 H (1.80-7.70) 10*3/uL Monocytes # 1.39 H 1.56 H (0.20-1.00) 10*3/uL Eosinophils # 0.03 L (0.04-0.35) 10*3/uL Basophils # 0.16 H 0.15 H (0.00-0.10) 10*3/uL Carbon Dioxide 21 L (22-30) mmol/L BUN 26 H (9-20) mg/dL Glucose 179 H (74-99) mg/dL POC Glucose (mg/dL) (70-110) mg/dL Calcium 10.6 H (8.4-10.2) mg/dL AST 136 H (17-59) U/L ALT 139 H (4-49) U/L C-Reactive Protein 15.3 H (<1.0) mg/dL 04/10/25 04/10/25 Range/Units 02:39 06:23 WBC (4.50-10.00) 10*3/uL Immature Gran # (0.00-0.04) 10*3/uL Neutrophils # (1.80-7.70) 10*3/uL Monocytes # (0.20-1.00) 10*3/uL Eosinophils # (0.04-0.35) 10*3/uL Basophils # (0.00-0.10) 10*3/uL Carbon Dioxide (22-30) mmol/L BUN 21 H (9-20) mg/dL Glucose 132 H (74-99) mg/dL POC Glucose (mg/dL) 159 H (70-110) mg/dL Calcium (8.4-10.2) mg/dL AST 110 H (17-59) U/L ALT 127 H (4-49) U/L C-Reactive Protein (<1.0) mg/dL
[2025-04-10 11:47] LABS: Glucose,Whole Blood 157 mg/dL (70-110)
--- NOTE | 2025-04-10 12:59 | US ---
EXAMINATION TYPE: US abdomen comp/pelvis limited DATE OF EXAM: 04/10/2025 COMPARISON: NONE CLINICAL INDICATION: Male, 69 years old with history of elevated liver enz; Elevated liver enzymes pe lvic pain. Exam limitations due to bowel gas. TECHNIQUE: Grayscale color Doppler imaging of the abdomen and pelvis. FINDINGS: EXAM MEASUREMENTS: Liver Length: 16.8 cm Gallbladder Wall: .2 cm CBD: .4 cm Spleen: 12.4 cm Right Kidney: 11.6 x 5.3 x 4.0 cm Left Kidney: 12.1 x 7.0 x 5.1 cm Pancreas: Obscured by bowel gas Liver: Increased attenuation Gallbladder: No stones seen CBD: wnl Spleen: wnl Right Kidney: No hydronephrosis or masses seen Left Kidney: No hydronephrosis or masses seen Upper IVC: wnl Abd Aorta: Obscured by overlying bowel gas Bladder: Anechoic Bilateral Jets Seen right only IMPRESSION: 1. No evidence for acute process 2. Hepatic steatosis. [facility], , 04/10/2025 12:56 PM
[2025-04-10 16:26] LABS: Glucose,Whole Blood 193 mg/dL (70-110)
[2025-04-10 17:54] LABS: Appearance,Urine Clear (Clear); Bilirubin,Urine Negative (Negative); Blood,Urine Moderate (Negative); Color,Urine Light Yellow; Glucose,Urine (UA) 1+ (Negative); Ketones,Urine Negative (Negative); Leukocyte Esterase,Urine Negative (Negative); Mucus,Urine Rare /hpf; Nitrite,Urine Negative (Negative); PH, Urine 5.5 (5.0-8.0); Protein,Urine Negative (Negative); RBC,Urine 73 /hpf (0-5); Specific Gravity,Urine 1.013 (1.001-1.035); Urobilinogen,Urine <2.0 mg/dL (<2.0); WBC,Urine 3 /hpf (0-5)
[2025-04-10 21:20] LABS: Glucose,Whole Blood 135 mg/dL (70-110)
--- NOTE | 2025-04-10 22:14 | P.GSCN ---
History of Present Illness Consult date: 04/10/25 Reason for Consult: UTI, Urinary Retention Requesting physician: Jerel Victor History of present illness: The patient is a 69-year-old white male with a rising PSA level. On April 04, he underwent a prostate ultrasound with biopsies performed by Dr. Guille Hillman at [facility]. Within 24 hours, he began to experience difficulty voiding, chills, and weakness. He was seen in the ER on April 07 and diagnosed with a UTI. He was defied yesterday that his blood culture was positive, and he was admitted. He has been found to be emptying his bladder incompletely, and therefore a Hi catheter was placed. Review of Systems - Constitutional Reports chills, Reports weakness - Genitourinary Reports urinary frequency, Reports urinary hesitancy Past Medical History Past Medical History: Diabetes Mellitus, Hyperlipidemia, Hypertension History of Any Multi-Drug Resistant Organisms: None Reported Past Surgical History: Appendectomy, Tonsillectomy Additional Past Surgical History / Comment(s): biopsy for prostate ca. rotator cuff- l. right total knee replacement Past Psychological History: No Psychological Hx Reported Smoking Status: Former smoker Past Alcohol Use History: None Reported Past Drug Use History: None Reported Medications and Allergies Home Medications Medication Instructions Recorded Confirmed Type Atorvastatin [Lipitor] 20 mg PO HS 04/10/25 04/10/25 History Sildenafil Citrate 100 mg PO DAILY PRN 04/10/25 04/10/25 History Silodosin [Rapaflo] 8 mg PO DAILY 04/10/25 04/10/25 History Telmisartan [Micardis] 40 mg PO DAILY PRN 04/10/25 04/10/25 History hydroCHLOROthiazide [Hydrodiuril] 12.5 mg PO DAILY 04/10/25 04/10/25 History metFORMIN HCL [Glucophage] 500 mg PO DAILY 04/10/25 04/10/25 History Allergies Allergy/AdvReac Type Severity Reaction Status Date / Time No Known Allergies Allergy Verified 04/10/25 09:33 Surgical - Exam Vital Signs Temp Pulse Resp BP Pulse Ox 97.4 F L 70 18 150/76 96 04/09/25 20:13 04/09/25 20:13 04/09/25 20:13 04/09/25 20:13 04/09/25 20:13 - General well developed, well nourished, no distress - Respiratory normal respiratory effort - Abdomen Abdomen: soft, non tender, no guarding, no rigid, no rebound - Genitourinary Normal phallus, normal testes. Hi catheter in place, draining clear urine. - Psychiatric oriented to time, oriented to person, oriented to place, speech is normal, memory intact Results - Labs 04/10/25 02:39 04/10/25 02:39 Abnormal Lab Results - Last 24 Hours (Table) 04/09/25 04/09/25 04/10/25 Range/Units 20:47 20:47 02:39 WBC 13.00 H 15.08 H (4.50-10.00) 10*3/uL Immature Gran # 0.13 H 0.15 H (0.00-0.04) 10*3/uL Neutrophils # 10.18 H 12.13 H (1.80-7.70) 10*3/uL Monocytes # 1.39 H 1.56 H (0.20-1.00) 10*3/uL Eosinophils # 0.03 L (0.04-0.35) 10*3/uL Basophils # 0.16 H 0.15 H (0.00-0.10) 10*3/uL Carbon Dioxide 21 L (22-30) mmol/L BUN 26 H (9-20) mg/dL Glucose 179 H (74-99) mg/dL POC Glucose (mg/dL) (70-110) mg/dL Calcium 10.6 H (8.4-10.2) mg/dL AST 136 H (17-59) U/L ALT 139 H (4-49) U/L C-Reactive Protein 15.3 H (<1.0) mg/dL Urine Glucose (UA) (Negative) Urine Blood (Negative) Urine RBC (0-5) /hpf Urine Mucus (None) /hpf 04/10/25 04/10/25 04/10/25 Range/Units 02:39 06:23 11:46 WBC (4.50-10.00) 10*3/uL Immature Gran # (0.00-0.04) 10*3/uL Neutrophils # (1.80-7.70) 10*3/uL Monocytes # (0.20-1.00) 10*3/uL Eosinophils # (0.04-0.35) 10*3/uL Basophils # (0.00-0.10) 10*3/uL Carbon Dioxide (22-30) mmol/L BUN 21 H (9-20) mg/dL Glucose 132 H (74-99) mg/dL POC Glucose (mg/dL) 159 H 157 H (70-110) mg/dL Calcium (8.4-10.2) mg/dL AST 110 H (17-59) U/L ALT 127 H (4-49) U/L C-Reactive Protein (<1.0) mg/dL Urine Glucose (UA) (Negative) Urine Blood (Negative) Urine RBC (0-5) /hpf Urine Mucus (None) /hpf 04/10/25 04/10/25 Range/Units 15:57 16:24 WBC (4.50-10.00) 10*3/uL Immature Gran # (0.00-0.04) 10*3/uL Neutrophils # (1.80-7.70) 10*3/uL Monocytes # (0.20-1.00) 10*3/uL Eosinophils # (0.04-0.35) 10*3/uL Basophils # (0.00-0.10) 10*3/uL Carbon Dioxide (22-30) mmol/L BUN (9-20) mg/dL Glucose (74-99) mg/dL POC Glucose (mg/dL) 193 H (70-110) mg/dL Calcium (8.4-10.2) mg/dL AST (17-59) U/L ALT (4-49) U/L C-Reactive Protein (<1.0) mg/dL Urine Glucose (UA) 1+ H (Negative) Urine Blood Moderate H (Negative) Urine RBC 73 H (0-5) /hpf Urine Mucus Rare H (None) /hpf Diabetes panel 04/09/25 04/10/25 Range/Units 20:47 02:39 Sodium 139 138 (137-145) mmol/L Potassium 4.2 3.6 (3.5-5.1) mmol/L Chloride 103 101 (98-107) mmol/L Carbon Dioxide 21 L 24 (22-30) mmol/L BUN 26 H 21 H (9-20) mg/dL Creatinine 0.70 0.77 (0.66-1.25) mg/dL Glucose 179 H 132 H (74-99) mg/dL Calcium 10.6 H 10.0 (8.4-10.2) mg/dL AST 136 H 110 H (17-59) U/L ALT 139 H 127 H (4-49) U/L Alkaline Phosphatase 107 110 (38-126) U/L Total Protein 7.5 6.8 (6.3-8.2) g/dL Albumin 4.2 3.8 (3.5-5.0) g/dL Calcium panel 04/09/25 04/10/25 Range/Units 20:47 02:39 Calcium 10.6 H 10.0 (8.4-10.2) mg/dL Phosphorus 3.7 3.0 (2.5-4.5) mg/dL Albumin 4.2 3.8 (3.5-5.0) g/dL Pituitary panel 04/09/25 04/10/25 Range/Units 20:47 02:39 Sodium 139 138 (137-145) mmol/L Potassium 4.2 3.6 (3.5-5.1) mmol/L Chloride 103 101 (98-107) mmol/L Carbon Dioxide 21 L 24 (22-30) mmol/L BUN 26 H 21 H (9-20) mg/dL Creatinine 0.70 0.77 (0.66-1.25) mg/dL Glucose 179 H 132 H (74-99) mg/dL Calcium 10.6 H 10.0 (8.4-10.2) mg/dL Adrenal panel 04/09/25 04/10/25 Range/Units 20:47 02:39 Sodium 139 138 (137-145) mmol/L Potassium 4.2 3.6 (3.5-5.1) mmol/L Chloride 103 101 (98-107) mmol/L Carbon Dioxide 21 L 24 (22-30) mmol/L BUN 26 H 21 H (9-20) mg/dL Creatinine 0.70 0.77 (0.66-1.25) mg/dL Glucose 179 H 132 H (74-99) mg/dL Calcium 10.6 H 10.0 (8.4-10.2) mg/dL Total Bilirubin 1.3 0.9 (0.2-1.3) mg/dL AST 136 H 110 H (17-59) U/L ALT 139 H 127 H (4-49) U/L Alkaline Phosphatase 107 110 (38-126) U/L Total Protein 7.5 6.8 (6.3-8.2) g/dL Albumin 4.2 3.8 (3.5-5.0) g/dL Assessment and Plan (1) UTI (urinary tract infection) Current Visit: Yes Status: Acute Code(s): N39.0 - URINARY TRACT INFECTION, SITE NOT SPECIFIED SNOMED Code(s): 25035893 (2) Retention of urine, unspecified Current Visit: Yes Status: Acute Code(s): R33.9 - RETENTION OF URINE, UNSPECIFIED SNOMED Code(s): 361841967 Plan: Preliminary blood culture shows anaerobic gram-positive bacilli. This is a very unusual pathogen given the presumption that the patient has post biopsy sepsis, which is usually the result of a gram-negative enteric organism. He is clinically improved, and I would suggest Zosyn be continued until the culture results are completed. The patient is receiving Flomax, and I would suggest that the Hi catheter remain in place until his overall clinical condition has further improved. Time with Patient: Greater than 30
--- NOTE | 2025-04-11 06:02 | P.CONS ---
History of Present Illness - Reason for Consult Consult date: 04/10/25 Bacteremia Requesting physician: Collins Barber - Chief Complaint Positive blood culture x 1 day - History of Present Illness Patient is a 69-year-old male with a past medical history significant for diabetes mellitus hypertension hyperlipidemia in this patient who recently did have a prostate biopsy on April 04, 2025 patient subsequently started having fever and chills weakness and difficulty voiding and also noticed to have some blood in the stool but no significant blood in the urine patient came to [facility] ER on 04/08/2025 with the patient was noticed to be febrile tachycardic he did have elevated white count UA was positive no urine culture was done blood cultures came back positive with anaerobe Gram positive bacilli for the patient was advised to come back to the hospital at that point the patient did have a chest x-ray there was concern for right lower lobe airspace opacity correlate for pneumonia however the patient did not have any respiratory symptoms at that time and he continued not having any respiratory symptoms radha ent on presentation to the hospital this admission has been afebrile no fever Hemoccult subsequently patient was not tachycardic or hypotensive not hypoxic patient did have a white count of 13,000 which is up to 15.08 creatinine has been normal electrolytes are normal urine this time showing mostly RBC patient did have abdominal ultrasound no evidence of any hydronephrosis or acute process patient has been started on Zosyn infectious disease was consulted because of bacteremia Review of Systems Positive point and negatives has been mentioned in the HPI, complete review of systems was performed and all other systems are negative Past Medical History Past Medical History: Diabetes Mellitus, Hyperlipidemia, Hypertension History of Any Multi-Drug Resistant Organisms: None Reported Past Surgical History: Appendectomy, Tonsillectomy Additional Past Surgical History / Comment(s): biopsy for prostate ca. rotator cuff- l. right total knee replacement Past Psychological History: No Psychological Hx Reported Smoking Status: Former smoker Past Alcohol Use History: None Reported Past Drug Use History: None Reported Medications and Allergies Home Medications Medication Instructions Recorded Confirmed Type Atorvastatin [Lipitor] 20 mg PO HS 04/10/25 04/10/25 History Sildenafil Citrate 100 mg PO DAILY PRN 04/10/25 04/10/25 History Silodosin [Rapaflo] 8 mg PO DAILY 04/10/25 04/10/25 History Telmisartan [Micardis] 40 mg PO DAILY PRN 04/10/25 04/10/25 History hydroCHLOROthiazide [Hydrodiuril] 12.5 mg PO DAILY 04/10/25 04/10/25 History metFORMIN HCL [Glucophage] 500 mg PO DAILY 04/10/25 04/10/25 History Allergies Allergy/AdvReac Type Severity Reaction Status Date / Time No Known Allergies Allergy Verified 04/10/25 09:33 Physical Exam Vitals: Vital Signs Temp Pulse Pulse Resp BP BP Pulse Ox 04/10/25 07:51 98.0 F 65 15 152/83 95 04/09/25 23:57 97.7 F 75 17 141/87 99 04/09/25 23:30 82 20 166/97 96 04/09/25 22:00 92 24 167/110 96 04/09/25 20:13 97.4 F L 70 18 150/76 96 Intake and Output 04/09/25 04/10/25 04/10/25 22:59 06:59 14:59 Other: Voiding Method Toilet Toilet # Voids 3 Weight 99.79 kg 99.79 kg GENERAL DESCRIPTION: Elderly male lying in bed, no distress. No tachypnea or accessory muscle of respiration use. HEENT: Shows Pallor , no scleral icterus. Oral mucous membrane is dry. No pharyngeal erythema or thrush NECK: Trachea central, no thyromegaly. LUNGS: Unlabored breathing. Clear to auscultation anteriorly. No wheeze or crackle. HEART: S1, S2, regular rate and rhythm. No loud murmur ABDOMEN: Soft, no tenderness , guarding or rigidity, no organomegaly EXTREMITIES: No edema of feet. SKIN: No rash, no masses palpable. NEUROLOGICAL: The patient is awake, alert, oriented x3, mood and affect normal. Results CBC & Chem 7: 04/10/25 02:39 04/10/25 02:39 Labs: Abnormal Lab Results - Last 24 Hours (Table) 04/09/25 04/09/25 04/10/25 Range/Units 20:47 20:47 02:39 WBC 13.00 H 15.08 H (4.50-10.00) 10*3/uL Immature Gran # 0.13 H 0.15 H (0.00-0.04) 10*3/uL Neutrophils # 10.18 H 12.13 H (1.80-7.70) 10*3/uL Monocytes # 1.39 H 1.56 H (0.20-1.00) 10*3/uL Eosinophils # 0.03 L (0.04-0.35) 10*3/uL Basophils # 0.16 H 0.15 H (0.00-0.10) 10*3/uL Carbon Dioxide 21 L (22-30) mmol/L BUN 26 H (9-20) mg/dL Glucose 179 H (74-99) mg/dL POC Glucose (mg/dL) (70-110) mg/dL Calcium 10.6 H (8.4-10.2) mg/dL AST 136 H (17-59) U/L ALT 139 H (4-49) U/L C-Reactive Protein 15.3 H (<1.0) mg/dL 04/10/25 04/10/25 Range/Units 02:39 06:23 WBC (4.50-10.00) 10*3/uL Immature Gran # (0.00-0.04) 10*3/uL Neutrophils # (1.80-7.70) 10*3/uL Monocytes # (0.20-1.00) 10*3/uL Eosinophils # (0.04-0.35) 10*3/uL Basophils # (0.00-0.10) 10*3/uL Carbon Dioxide (22-30) mmol/L BUN 21 H (9-20) mg/dL Glucose 132 H (74-99) mg/dL POC Glucose (mg/dL) 159 H (70-110) mg/dL Calcium (8.4-10.2) mg/dL AST 110 H (17-59) U/L ALT 127 H (4-49) U/L C-Reactive Protein (<1.0) mg/dL Assessment and Plan (1) Bacteremia Current Visit: Yes Status: Acute Code(s): R78.81 - BACTEREMIA SNOMED Code(s): 5356556 (2) UTI (urinary tract infection) Current Visit: Yes Status: Acute Code(s): N39.0 - URINARY TRACT INFECTION, SITE NOT SPECIFIED SNOMED Code(s): 00516355 Plan: 1patient presented to hospital with positive blood culture from her recent ER visit with the patient presented mostly with a urinary symptom and did have recent prostate biopsy highly suspicious for urinary source for dizziness rather than pneumonia he is not growing gram positive anaerobe bacilli which is likely skin contamination rather than true pathogen 2blood cultures will be repeated to document clearance 3we will treat the patient with Zosyn and see clinical response We will follow on clinical condition and cultures to further adjust medication if needed Thank you for this consultation we will follow the patient along with you Dictation was produced using [employer] dictation software. please excuse any grammatical, word or spelling errors. Time with Patient: Greater than 30
[2025-04-11 06:22] LABS: Glucose,Whole Blood 139 mg/dL (70-110)
[2025-04-11] MEDS ORDERED: SILODOSIN 8 MG PO SCH (09:00)
[2025-04-11 09:12] LABS: HCT 35.5 % (39.6-50.0); HGB 12.1 g/dL (13.0-17.0); MCH 28.8 pg (27.0-32.0); MCHC 34.1 g/dL (32.0-37.0); MCV 84.5 fL (80.0-97.0); Platelet Count 331 10*3/uL (140-440); RDW 15.9 % (11.5-14.5); WBC 11.12 10*3/uL (4.50-10.00)
[2025-04-11 09:37] LABS: ALT 78 U/L (4-49); AST 45 U/L (17-59); African American GFR (CKD) >90 (>60 ml/min/1.73 sqM); Albumin 2.9 g/dL (3.5-5.0); Albumin/Globulin Ratio 1.1; Alkaline Phosphatase 75 U/L (38-126); Anion Gap 7 mmol/L; Blood Urea Nitrogen 15 mg/dL (9-20); Calcium 9.1 mg/dL (8.4-10.2); Carbon Dioxide 24 mmol/L (22-30); Chloride 108 mmol/L (98-107); Globulin 2.7 g/dL; Glucose 230 mg/dL (74-99); Magnesium 1.8 mg/dL (1.6-2.3); Non-African American GFR(CKD) >90 (>60 ml/min/1.73 sqM); Potassium 3.2 mmol/L (3.5-5.1); Sodium 139 mmol/L (137-145); Total Bilirubin 0.9 mg/dL (0.2-1.3); Total Protein 5.6 g/dL (6.3-8.2)
[2025-04-11] MEDS: LACTULOSE 20 GM/30 ML CUP PO PRN (09:59)
[2025-04-11] MEDS: hydroCHLOROthiazide 12.5 MG CAP PO SCH (09:59)
[2025-04-11] MEDS: POTASSIUM CHLORIDE ER 20 MEQ TAB.ER PO STA (10:07)
[2025-04-11 11:25] LABS: Glucose,Whole Blood 116 mg/dL (70-110)
--- NOTE | 2025-04-11 11:47 | P.PN ---
Subjective Progress Note Date: 04/11/25 Hospital course: Patient is a very pleasant 69-year-old male with a past medical history of hyp ertension, hyperlipidemia, [id number] diabetes mellitus, and enlarged prostate currently undergoing evaluation for prostate prostate cancer with biopsies completed 04/04/2025. He returned to the hospital on 04/09/2025 after receiving a phone call that his blood culture was positive for bacteria. Patient was recently evaluated in the emergency department 2 days prior with complaints of pelvic pain, urinary retention, and constant urination/dribbling since prostate biopsy and was diagnosed with a UTI. At that time patient had blood cultures drawn and received a call from the emergency department that he needed to return because his blood culture was positive. [facility] patient underwent evaluation in the emergency department. Vital signs upon arrival show blood pressure 150/76, heart rate 70, respiratory rate 18, temp 97.4 F, and SpO2 of 96% on room air. Labs completed and reviewed. CBC showing leukocytosis with WBC count of 13.00 with immature granulocytes of 0.13, neutrophils of 10.18, monocytes of 1.39, and basophils of 0.16. Coagulation profile normal findings. BMP showing high anion gap metabolic acidosis with chloride of 103, bicarb of 21, and anion gap of 15 with mild prerenal azotemia with BUN of 26 otherwise normal findings. Blood glucose was 179. Lactic acid was 1.6. Calcium was elevated at 10.6. Magnesium 2.1. Liver profile showing transaminitis with AST of 136, ALT of 139, and alkaline phosphatase of 107. Troponin was negative at less than 0.012. CRP was elevated at 15.3. Urinalysis positive for glucose, moderate blood, and 73 RBCs but negative for infection. Blood culture drawn 04/08/2025 showing positive for anaerobic gram-positive bacilli. Repeat blood cultures obtained at time of admission. Chest x-ray negative for acute cardiopulmonary process. Abdominal ultrasound showing hepatic steatosis but negative for acute intra-abdominal process. Patient was admitted under services with consultation to infectious disease and urology. Physical exam: Patient was seen and fully evaluated at bedside this morning. He reports since placement of Hi catheter his suprapubic/pelvic pain fully resolved. Patient reports his last bowel movement was this morning. Patient is preparing to get into the shower and clean self up. He denies having any other complaints, questions, needs, or concerns at this time. Vital signs reviewed and stable. General: Nontoxic, no distress and appears stated age. Derm: Skin warm and dry, normal coloration for ethnicity. Head: Atraumatic, normocephalic and symmetric. Eyes: EOM's intact, no lid lag, and anicteric sclera Mouth: no lip lesions, mucus membranes moist Cardiovascular: regular rate and rhythm with normal S1S2, no murmur, positive posterior tibial pulses bilaterally, and cap refill < 2 seconds. Lungs: Respirations even, regular, and unlabored on room air. Lungs CTA bilaterally, no rhonchi, no rales, no wheezing, and no accessory muscle usage. Abdominal: soft, nontender to palpation, no guarding, no appreciable organomegaly. Hi catheter in place Ext: ROM intact. No gross muscle atrophy, no edema, no contractures Neuro: Speech clear, face symmetrical and CN II-XII grossly intact with no noted focal neuro deficits Psych: Alert and oriented to person, place, time, and situation. Appropriate and pleasant affect. Assessment and Plan of Care: Bacteremia UTI Urinary retention Enlarged prostate, status post prostate biopsies 04/04/2025 Leukocytosis Transaminitis -Continue IV antibiotics with Zosyn 3.375 g every 8 hours pending further cultu re results. -Infectious disease following, discussed plan of care with Dr. Irby. -Urology following, discussed plan of care with Dr. Mackay. -Continue Hi catheter management/care with close monitoring of output. -Continue Flomax 0.4 mg daily and silodosin 8 mg daily. -Follow-up blood culture results. Hypokalemia Potassium 3.2. Orders placed for K-Dur 40 mEq p.o. x 1 dose. Will continue to monitor with repeat a.m. labs and replace abnormal electrolyte values if indicated based upon these findings. Hypertension -Monitor vital signs continue daily medication regimen with hydrochlorothiazide 12.5 mg daily and substitute telmisartan with losartan 50 mg daily based upon hospital availability. Diabetes mellitus with hyperglycemia -Hemoglobin A1c 6.8%. Hold metformin and continue glycemic protocol with Humalog sliding scale Hyperlipidemia -Continue daily medication regimen with atorvastatin 20 mg nightly. Data and imaging reviewed: Morning labs reviewed. CBC showing leukocytosis with WBC count of 11.12 and hemoglobin of 12.1. BMP showing hypokalemia with potassium of 3.2 and hyperchloremia with chloride of 108. Liver profile showing elevated ALT of 78, low total protein of 5.6, and low albumin of 2.9. Vital signs reviewed. Blood pressure 124/73, heart rate 68, respiratory rate 18, temp 97.6 F, and SpO2 of 96% on room air. CODE STATUS: Full code DVT prophylaxis: Lovenox Anticipated discharge date: Pending clinical course Anticipated discharge place: Home Patient was seen independently by Nurse Pracitioner. This document was prepared using [employer] dictation software. Please allow for errors in arc welder, while rare they do occur. Regan Lugo NP rendered care for this patient independently, reviewed the findings and plan as documented in the note above and agree with plan. I did not physically speak with or examine the patient on this date. Objective - Vital Signs Vital signs: Vital Signs Temp 97.6 F 04/11/25 07:45 Pulse 68 04/11/25 07:45 Resp 18 04/11/25 07:45 BP 124/73 04/11/25 07:45 Pulse Ox 97 04/11/25 08:31 FiO2 21 04/11/25 08:31 Intake & Output 04/10/25 04/11/25 04/11/25 18:59 06:59 18:59 Output Total 1700 1425 Balance -1700 -1425 Output: Urine 1700 1425 Uretheral (Hi) 1500 Other: Voiding Method Toilet Indwelling Catheter - Labs CBC & Chem 7: 04/11/25 08:58 04/11/25 08:58 Labs: Abnormal Lab Results - Last 24 Hours (Table) 04/10/25 04/10/25 04/10/25 Range/Units 02:39 11:46 15:57 POC Glucose (mg/dL) 157 H (70-110) mg/dL Hemoglobin A1c 6.8 H (<=6.0) % Urine Glucose (UA) 1+ H (Negative) Urine Blood Moderate H (Negative) Urine RBC 73 H (0-5) /hpf Urine Mucus Rare H (None) /hpf 04/10/25 04/10/25 04/11/25 Range/Units 16:24 21:18 06:20 POC Glucose (mg/dL) 193 H 135 H 139 H (70-110) mg/dL Hemoglobin A1c (<=6.0) % Urine Glucose (UA) (Negative) Urine Blood (Negative) Urine RBC (0-5) /hpf Urine Mucus (None) /hpf
[2025-04-11 16:32] LABS: Glucose,Whole Blood 114 mg/dL (70-110)
--- NOTE | 2025-04-11 16:59 | P.PN ---
Subjective Progress Note Date: 04/11/25 Principal diagnosis: Reason for follow-up is positive blood culture and UTI Patient is a 69-year-old male with a past medical history significant for diabetes mellitus hypertension hyperlipidemia in this patient who recently did have a prostate biopsy on April 04, 2025 patient subsequently started having fever and chills weakness and difficulty voiding presented to the ER did have a positive UA abnormal x-ray was diagnosed with pneumonia discharged home on lower antibiotic blood cultures came back positive with gram-positive bacilli for the patient has been readmitted. On today's evaluation that is 04/11/2025, Patient is afebrile this morning patient denies having any chest pain shortness of breath or cough, the patient is currently on room air, patient denies any abdominal pain no diarrhea no nausea no vomiting, Hi catheter has to be placed because of retention. Patient white count is down to 11.12, creatinine 0.73 blood culture repeat pending Objective - Vital Signs Vital signs: Vital Signs Temp 97.6 F 04/11/25 07:45 Pulse 68 04/11/25 07:45 Resp 18 04/11/25 07:45 BP 124/73 04/11/25 07:45 Pulse Ox 97 04/11/25 08:31 FiO2 21 04/11/25 08:31 Intake & Output 04/10/25 04/11/25 04/11/25 18:59 06:59 18:59 Output Total 1700 1425 Balance -1700 -1425 Output: Urine 1700 1425 Uretheral (Hi) 1500 Other: Voiding Method Toilet Indwelling Catheter Indwelling Catheter - Exam GENERAL DESCRIPTION: An elderly male lying in bed in no distress RESPIRATORY SYSTEM: Unlabored breathing , decreased breath sounds at bases HEART: S1 S2 regular rate and rhythm , ABDOMEN: Soft , no tenderness EXTREMITIES: No edema feet - Labs CBC & Chem 7: 04/11/25 08:58 04/11/25 08:58 Labs: Abnormal Lab Results - Last 24 Hours (Table) 04/10/25 04/10/25 04/10/25 Range/Units 02:39 15:57 16:24 WBC (4.50-10.00) 10*3/uL RBC (4.40-5.60) 10*6/uL Hgb (13.0-17.0) g/dL Hct (39.6-50.0) % RDW (11.5-14.5) % Potassium (3.5-5.1) mmol/L Chloride (98-107) mmol/L Glucose (74-99) mg/dL POC Glucose (mg/dL) 193 H (70-110) mg/dL Hemoglobin A1c 6.8 H (<=6.0) % ALT (4-49) U/L Total Protein (6.3-8.2) g/dL Albumin (3.5-5.0) g/dL Urine Glucose (UA) 1+ H (Negative) Urine Blood Moderate H (Negative) Urine RBC 73 H (0-5) /hpf Urine Mucus Rare H (None) /hpf 04/10/25 04/11/25 04/11/25 Range/Units 21:18 06:20 08:58 WBC 11.12 H (4.50-10.00) 10*3/uL RBC 4.20 L (4.40-5.60) 10*6/uL Hgb 12.1 L (13.0-17.0) g/dL Hct 35.5 L (39.6-50.0) % RDW 15.9 H (11.5-14.5) % Potassium (3.5-5.1) mmol/L Chloride (98-107) mmol/L Glucose (74-99) mg/dL POC Glucose (mg/dL) 135 H 139 H (70-110) mg/dL Hemoglobin A1c (<=6.0) % ALT (4-49) U/L Total Protein (6.3-8.2) g/dL Albumin (3.5-5.0) g/dL Urine Glucose (UA) (Negative) Urine Blood (Negative) Urine RBC (0-5) /hpf Urine Mucus (None) /hpf 04/11/25 04/11/25 Range/Units 08:58 11:24 WBC (4.50-10.00) 10*3/uL RBC (4.40-5.60) 10*6/uL Hgb (13.0-17.0) g/dL Hct (39.6-50.0) % RDW (11.5-14.5) % Potassium 3.2 L (3.5-5.1) mmol/L Chloride 108 H (98-107) mmol/L Glucose 230 H (74-99) mg/dL POC Glucose (mg/dL) 116 H (70-110) mg/dL Hemoglobin A1c (<=6.0) % ALT 78 H (4-49) U/L Total Protein 5.6 L (6.3-8.2) g/dL Albumin 2.9 L (3.5-5.0) g/dL Urine Glucose (UA) (Negative) Urine Blood (Negative) Urine RBC (0-5) /hpf Urine Mucus (None) /hpf Assessment and Plan (1) Bacteremia Current Visit: Yes Status: Acute Code(s): R78.81 - BACTEREMIA SNOMED Code(s): 7840531 (2) UTI (urinary tract infection) Current Visit: Yes Status: Acute Code(s): N39.0 - URINARY TRACT INFECTION, SITE NOT SPECIFIED SNOMED Code(s): 48198132 Plan: 1patient presented to hospital with positive blood culture from her recent ER visit with the patient presented mostly with a urinary symptom and did have recent prostate biopsy highly suspicious for urinary source for dizziness rather than pneumonia he is not growing gram positive anaerobe bacilli which is likely skin contamination rather than true pathogen 2blood cultures has been repeated which are currently pending 3patient seen to have shown some clinical improvement to continue Zosyn while waiting for repeat culture to finalize Dictation was produced using [employer] dictation software. please excuse any grammatical, word or spelling errors. Time with Patient: Less than 30
[2025-04-11 21:19] LABS: Glucose,Whole Blood 177 mg/dL (70-110)
[2025-04-11] MEDS: BENZONATATE 100 MG CAP PO SCH (22:18)
[2025-04-11] MEDS: ATORVASTATIN 20 MG TAB PO SCH (22:18)
[2025-04-12 06:07] LABS: Glucose,Whole Blood 143 mg/dL (70-110)
[2025-04-12 08:08] LABS: HGB 13.4 g/dL (13.0-17.0); MCH 28.3 pg (27.0-32.0); MCHC 32.7 g/dL (32.0-37.0); MCV 86.7 FL (80.0-97.0); Mean Platelet Volume 10.5 FL (9.5-12.2); NRBC Per 100 WBC 0 X 10*3/uL (0.00-0.01); Platelet Count 422 X 10*3/uL (140-440); RBC 4.73 X 10*6/uL (4.40-5.60); RDW 15.9 % (11.5-14.5)
[2025-04-12 08:31] LABS: BUN/Creat Ratio 19.33 Ratio (12.00-20.00); Blood Urea Nitrogen 11.6 mg/dL (9.0-27.0); Glucose 142 mg/dL (70-110)
[2025-04-12 08:32] LABS: ALT 92 U/L (10-49); AST 48 U/L (14-35); Albumin 3.5 g/dL (3.8-4.9); Alkaline Phosphatase 84 U/L (41-126); Calcium 9.9 mg/dL (8.7-10.3); Carbon Dioxide 22.4 mmol/L (21.6-31.8); Chloride 106 mmol/L (96-109); Globulin 2.5 g/dL (1.6-3.3); Magnesium 1.8 mg/dL (1.5-2.4); Sodium 140 mmol/L (135-145); Total Bilirubin 0.6 mg/dL (0.3-1.2)
[2025-04-12 11:24] LABS: Glucose,Whole Blood 148 mg/dL (70-110)
--- NOTE | 2025-04-12 12:45 | P.PN ---
Subjective Progress Note Date: 04/12/25 Hospital course: Patient is a very pleasant 69-year-old male with a past medical history of hyp ertension, hyperlipidemia, [id number] diabetes mellitus, and enlarged prostate currently undergoing evaluation for prostate prostate cancer with biopsies completed 04/04/2025. He returned to the hospital on 04/09/2025 after receiving a phone call that his blood culture was positive for bacteria. Patient was recently evaluated in the emergency department 2 days prior with complaints of pelvic pain, urinary retention, and constant urination/dribbling since prostate biopsy and was diagnosed with a UTI. At that time patient had blood cultures drawn and received a call from the emergency department that he needed to return because his blood culture was positive. Upon arrival to our [facility], patient underwent evaluation in the emergency department. Vital signs upon arrival show blood pressure 150/76, heart rate 70, respiratory rate 18, temp 97.4 F, and SpO2 of 96% on room air. Labs completed and reviewed. CBC showing leukocytosis with WBC count of 13.00 with immature granulocytes of 0.13, neutrophils of 10.18, monocytes of 1.39, and basophils of 0.16. Coagulation profile normal findings. BMP showing high anion gap metabolic acidosis with chloride of 103, bicarb of 21, and anion gap of 15 with mild prerenal azotemia with BUN of 26 otherwise normal findings. Blood glucose was 179. Lactic acid was 1.6. Calcium was elevated at 10.6. Magnesium 2.1. Liver profile showing transaminitis with AST of 136, ALT of 139, and alkaline phosphatase of 107. Troponin was negative at less than 0.012. CRP was elevated at 15.3. Urinalysis positive for glucose, moderate blood, and 73 RBCs but negative for infection. Blood culture drawn 04/08/2025 showing positive for anaerobic gram-positive bacilli. Repeat blood cultures obtained at time of admission. Chest x-ray negative for acute cardiopulmonary process. Abdominal ultrasound showing hepatic steatosis but negative for acute intra-abdominal process. Patient was admitted under services with consultation to infectious disease and urology. Physical exam: Patient was seen and fully evaluated at bedside this morning. He reports feeling well today and currently free from any complaints at this time. Pt updated that we continue to await repeat blood culture results and final cullture and sensitivy results on previous blood culture so plan to continue with IV antibiotics with zosyn pending these results. Pt in agreement and denies any further questions, needs, or concerns at this time. His nicholas catheter was removed this morning and pt undergoing voiding challenge, he states it was just removed so he has not yet urinated. Vital signs reviewed and stable. General: Nontoxic, no distress and appears stated age. Derm: Skin warm and dry, normal coloration for ethnicity. Head: Atraumatic, normocephalic and symmetric. Eyes: EOM's intact, no lid lag, and anicteric sclera Mouth: no lip lesions, mucus membranes moist Cardiovascular: regular rate and rhythm with normal S1S2, no murmur, positive posterior tibial pulses bilaterally, and cap refill < 2 seconds. Lungs: Respirations even, regular, and unlabored on room air. Lungs CTA bilaterally, no rhonchi, no rales, no wheezing, and no accessory muscle usage. Abdominal: soft, nontender to palpation, no guarding, no appreciable organomegaly. Ext: ROM intact. No gross muscle atrophy, no edema, no contractures Neuro: Speech clear, face symmetrical and CN II-XII grossly intact with no noted focal neuro deficits Psych: Alert and oriented to person, place, time, and situation. Appropriate and pleasant affect. Assessment and Plan of Care: Bacteremia UTI Urinary retention Enlarged prostate, status post prostate biopsies 04/04/2025 Leukocytosis Transaminitis -Continue IV antibiotics with Zosyn 3.375 g every 8 hours pending further culture results. -Infectious disease following, discussed plan of care with Dr. Irby. -Urology following, discussed plan of care with Dr. Mackay. -Nicholas catheter was removed this morning and pt undergoing voiding challenge at this time. -Continue Flomax 0.4 mg daily and silodosin 8 mg daily. -Follow-up blood culture results once finalized. Hypokalemia Potassium 3.2. Orders placed for K-Dur 40 mEq p.o. x 1 dose. Will continue to monitor with repeat a.m. labs and replace abnormal electrolyte values if indicated based upon these findings. Hypertension -Monitor vital signs continue daily medication regimen with hydrochlorothiazide 12.5 mg daily and substitute telmisartan with losartan 50 mg daily based upon hospital availability. Diabetes mellitus with hyperglycemia -Hemoglobin A1c 6.8%. Hold metformin and continue glycemic protocol with Humalog sliding scale Hyperlipidemia -Continue daily medication regimen with atorvastatin 20 mg nightly. Data and imaging reviewed: Morning labs reviewed. CBC showing leukocytosis with WBC count of 13.60. BMP unremarkable with Liver profile showing elevated AST 48 and ALT of 92. Vital signs reviewed. Blood pressure 105/72, heart rate 74, respiratory rate 15, temp 97.8 F, and SpO2 of 95% on room air. CODE STATUS: Full code DVT prophylaxis: Lovenox Anticipated discharge date: Pending clinical course Anticipated discharge place: Home Patient was seen independently by Nurse Pracitioner. This document was prepared using [employer] dictation software. Please allow for errors in pharmacy resource tech, while rare they do occur. Regan Lugo NP rendered care for this patient independently, reviewed the findings and plan as documented in the note above and agree with plan. I did not physically speak with or examine the patient on this date. Objective - Vital Signs Vital signs: Vital Signs Temp 97.8 F 04/12/25 07:36 Pulse 74 04/12/25 07:36 Resp 15 04/12/25 07:36 BP 105/72 04/12/25 07:36 Pulse Ox 95 04/12/25 07:36 FiO2 21 04/11/25 08:31 Intake & Output 04/11/25 04/12/25 04/12/25 18:59 06:59 18:59 Output Total 700 610 Balance -700 -610 Output: Urine 700 607 Urine/Stool Mix 3 Other: Voiding Method Indwelling Catheter Indwelling Catheter # Bowel Movements 2 - Labs CBC & Chem 7: 04/12/25 02:33 04/12/25 02:33 Labs: Abnormal Lab Results - Last 24 Hours (Table) 04/11/25 04/11/25 04/11/25 Range/Units 08:58 08:58 11:24 WBC 11.12 H (4.50-10.00) 10*3/uL RBC 4.20 L (4.40-5.60) 10*6/uL Hgb 12.1 L (13.0-17.0) g/dL Hct 35.5 L (39.6-50.0) % RDW 15.9 H (11.5-14.5) % Potassium 3.2 L (3.5-5.1) mmol/L Chloride 108 H (98-107) mmol/L Glucose 230 H (74-99) mg/dL POC Glucose (mg/dL) 116 H (70-110) mg/dL AST (14-35) U/L ALT 78 H (4-49) U/L Total Protein 5.6 L (6.3-8.2) g/dL Albumin 2.9 L (3.5-5.0) g/dL Albumin/Globulin Ratio (1.60-3.17) Ratio 04/11/25 04/11/25 04/12/25 Range/Units 16:30 21:17 02:33 WBC 13.60 H (4.50-10.00) 10*3/uL RBC (4.40-5.60) 10*6/uL Hgb (13.0-17.0) g/dL Hct (39.6-50.0) % RDW 15.9 H (11.5-14.5) % Potassium (3.5-5.1) mmol/L Chloride (98-107) mmol/L Glucose (74-99) mg/dL POC Glucose (mg/dL) 114 H 177 H (70-110) mg/dL AST (14-35) U/L ALT (4-49) U/L Total Protein (6.3-8.2) g/dL Albumin (3.5-5.0) g/dL Albumin/Globulin Ratio (1.60-3.17) Ratio 04/12/25 04/12/25 Range/Units 02:33 06:06 WBC (4.50-10.00) 10*3/uL RBC (4.40-5.60) 10*6/uL Hgb (13.0-17.0) g/dL Hct (39.6-50.0) % RDW (11.5-14.5) % Potassium (3.5-5.1) mmol/L Chloride (98-107) mmol/L Glucose 142 H (74-99) mg/dL POC Glucose (mg/dL) 143 H (70-110) mg/dL AST 48 H (14-35) U/L ALT 92 H (4-49) U/L Total Protein 6.0 L (6.3-8.2) g/dL Albumin 3.5 L (3.5-5.0) g/dL Albumin/Globulin Ratio 1.40 L (1.60-3.17) Ratio
[2025-04-12 16:47] LABS: Glucose,Whole Blood 138 mg/dL (70-110)
--- NOTE | 2025-04-12 17:06 | P.PN ---
Subjective Progress Note Date: 04/12/25 Principal diagnosis: Urinary retention The patient is a 69-year-old white male who developed difficulty voiding and chills following prostate biopsies. He was found to be in urinary retention, and a Hi catheter was placed. Blood cultures have shown anaerobic gram- positive bacilli, likely a skin contaminant. The patient is comfortable at this time. Objective - Vital Signs Vital signs: Vital Signs Temp 97.6 F 04/12/25 02:07 Pulse 62 04/12/25 02:07 Resp 17 04/12/25 02:07 BP 124/74 04/12/25 02:07 Pulse Ox 94 L 04/12/25 02:07 FiO2 21 04/11/25 08:31 Intake & Output 04/11/25 04/11/25 04/12/25 06:59 18:59 06:59 Output Total 1425 700 610 Balance -1425 -700 -610 Output: Urine 1425 700 607 Urine/Stool Mix 3 Other: Voiding Method Indwelling Catheter Indwelling Catheter Indwelling Catheter # Bowel Movements 2 - Constitutional General appearance: Present: average body habitus, cooperative, no acute distress - Genitourinary Genitourinary Comment(s): Hi catheter intact, draining clear yellow urine. - Psychiatric Psychiatric: Present: A&O x's 3 - Labs CBC & Chem 7: 04/12/25 02:33 04/12/25 02:33 Labs: Abnormal Lab Results - Last 24 Hours (Table) 04/10/25 04/11/25 04/11/25 Range/Units 02:39 08:58 08:58 WBC 11.12 H (4.50-10.00) 10*3/uL RBC 4.20 L (4.40-5.60) 10*6/uL Hgb 12.1 L (13.0-17.0) g/dL Hct 35.5 L (39.6-50.0) % RDW 15.9 H (11.5-14.5) % Potassium 3.2 L (3.5-5.1) mmol/L Chloride 108 H (98-107) mmol/L Glucose 230 H (74-99) mg/dL POC Glucose (mg/dL) (70-110) mg/dL Hemoglobin A1c 6.8 H (<=6.0) % ALT 78 H (4-49) U/L Total Protein 5.6 L (6.3-8.2) g/dL Albumin 2.9 L (3.5-5.0) g/dL 04/11/25 04/11/25 04/11/25 Range/Units 11:24 16:30 21:17 WBC (4.50-10.00) 10*3/uL RBC (4.40-5.60) 10*6/uL Hgb (13.0-17.0) g/dL Hct (39.6-50.0) % RDW (11.5-14.5) % Potassium (3.5-5.1) mmol/L Chloride (98-107) mmol/L Glucose (74-99) mg/dL POC Glucose (mg/dL) 116 H 114 H 177 H (70-110) mg/dL Hemoglobin A1c (<=6.0) % ALT (4-49) U/L Total Protein (6.3-8.2) g/dL Albumin (3.5-5.0) g/dL 04/12/25 Range/Units 06:06 WBC (4.50-10.00) 10*3/uL RBC (4.40-5.60) 10*6/uL Hgb (13.0-17.0) g/dL Hct (39.6-50.0) % RDW (11.5-14.5) % Potassium (3.5-5.1) mmol/L Chloride (98-107) mmol/L Glucose (74-99) mg/dL POC Glucose (mg/dL) 143 H (70-110) mg/dL Hemoglobin A1c (<=6.0) % ALT (4-49) U/L Total Protein (6.3-8.2) g/dL Albumin (3.5-5.0) g/dL Assessment and Plan (1) UTI (urinary tract infection) Current Visit: Yes Status: Acute Code(s): N39.0 - URINARY TRACT INFECTION, SITE NOT SPECIFIED SNOMED Code(s): 42440464 (2) Retention of urine, unspecified Current Visit: Yes Status: Acute Code(s): R33.9 - RETENTION OF URINE, UNSPECIFIED SNOMED Code(s): 817036078 Plan: Preliminary blood culture shows anaerobic gram-positive bacilli. This is a very unusual pathogen given the presumption that the patient had a post biopsy infection, which is usually the result of a gram-negative enteric organism, and it is my impression that this is a contaminant. He is clinically improved and receiving tamsulosin. I have suggested the Hi catheter be removed for a voiding trial. If he is able to void and empty his bladder adequately, he may be discharged home on tamsulosin and follow-up with his urologist (Dr. Hillman) on April 21 as already scheduled. If he is unable to void, or empty his bladder adequately, the Hi catheter will need to be replaced.
[2025-04-12 20:52] LABS: Glucose,Whole Blood 145 mg/dL (70-110)
--- NOTE | 2025-04-12 22:05 | P.PN ---
Subjective Progress Note Date: 04/12/25 Principal diagnosis: Reason for follow-up is positive blood culture and UTI Patient is a 69-year-old male with a past medical history significant for diabetes mellitus hypertension hyperlipidemia in this patient who recently did have a prostate biopsy on April 04, 2025 patient subsequently started having fever and chills weakness and difficulty voiding presented to the ER did have a positive UA abnormal x-ray was diagnosed with pneumonia discharged home on lower antibiotic blood cultures came back positive with gram-positive bacilli for the patient has been readmitted. On today's evaluation that is 04/12/2025,the patient denies any fever or any chills, patient is breathing comfortably on room air, the patient denies chest pain shortness of breath and no significant cough, patient denies abdominal pain, no nausea vomiting or diarrhea, patient did have Ih catheter discontinued however the patient mentioned has not been able to urinate since then. Patient white count is 13.60 creatinine 0.6 blood culture repeat has been negative so far Objective - Vital Signs Vital signs: Vital Signs Temp 97.8 F 04/12/25 07:36 Pulse 74 04/12/25 07:36 Resp 15 04/12/25 07:36 BP 105/72 04/12/25 07:36 Pulse Ox 95 04/12/25 07:36 FiO2 21 04/11/25 08:31 Intake & Output 04/11/25 04/12/25 04/12/25 18:59 06:59 18:59 Output Total 700 610 200 Balance -700 -610 -200 Output: Urine 700 607 200 Urine/Stool Mix 3 Other: Voiding Method Indwelling Catheter Indwelling Catheter Indwelling Catheter # Bowel Movements 2 - Exam GENERAL DESCRIPTION: An elderly male lying in bed in no distress RESPIRATORY SYSTEM: Unlabored breathing , decreased breath sounds at bases HEART: S1 S2 regular rate and rhythm , ABDOMEN: Soft , no tenderness EXTREMITIES: No edema feet - Labs CBC & Chem 7: 04/12/25 02:33 04/12/25 02:33 Labs: Abnormal Lab Results - Last 24 Hours (Table) 04/11/25 04/11/25 04/11/25 Range/Units 11:24 16:30 21:17 WBC (4.50-10.00) X 10*3/uL RDW (11.5-14.5) % Glucose (70-110) mg/dL POC Glucose (mg/dL) 116 H 114 H 177 H (70-110) mg/dL AST (14-35) U/L ALT (10-49) U/L Total Protein (6.2-8.2) g/dL Albumin (3.8-4.9) g/dL Albumin/Globulin Ratio (1.60-3.17) Ratio 04/12/25 04/12/25 04/12/25 Range/Units 02:33 02:33 06:06 WBC 13.60 H (4.50-10.00) X 10*3/uL RDW 15.9 H (11.5-14.5) % Glucose 142 H (70-110) mg/dL POC Glucose (mg/dL) 143 H (70-110) mg/dL AST 48 H (14-35) U/L ALT 92 H (10-49) U/L Total Protein 6.0 L (6.2-8.2) g/dL Albumin 3.5 L (3.8-4.9) g/dL Albumin/Globulin Ratio 1.40 L (1.60-3.17) Ratio Assessment and Plan (1) Bacteremia Current Visit: Yes Status: Acute Code(s): R78.81 - BACTEREMIA SNOMED Code(s): 0361314 (2) UTI (urinary tract infection) Current Visit: Yes Status: Acute Code(s): N39.0 - URINARY TRACT INFECTION, SITE NOT SPECIFIED SNOMED Code(s): 70019255 Plan: 1patient presented to hospital with positive blood culture from her recent ER visit with the patient presented mostly with a urinary symptom and did have recent prostate biopsy highly suspicious for urinary source for dizziness rather than pneumonia he is not growing gram positive anaerobe bacilli which is likely skin contamination rather than true pathogen 2blood cultures has been repeated which are currently pending 3patient seen to have shown some clinical improvement, the patient Hi catheter has been discontinued if the patient is able to urinate will be able to transition to oral antibiotic otherwise continue the patient on Zosyn while inpatient Dictation was produced using [employer] dictation software. please excuse any grammatical, word or spelling errors. Time with Patient: Less than 30
[2025-04-13 06:47] LABS: Glucose,Whole Blood 138 mg/dL (70-110)
[2025-04-13 07:44] VITALS: RESP 16
[2025-04-13 08:39] LABS: ALT 90 U/L (10-49); AST 47 U/L (14-35); Albumin 3.5 g/dL (3.8-4.9); Alkaline Phosphatase 77 U/L (41-126); BUN/Creat Ratio 12.38 Ratio (12.00-20.00); Blood Urea Nitrogen 9.9 mg/dL (9.0-27.0); Calcium 9.9 mg/dL (8.7-10.3); Carbon Dioxide 23.5 mmol/L (21.6-31.8); Chloride 103 mmol/L (96-109); Globulin 2.5 g/dL (1.6-3.3); Glucose 144 mg/dL (70-110); Magnesium 1.8 mg/dL (1.5-2.4); Potassium 3.7 mmol/L (3.5-5.5); Sodium 139 mmol/L (135-145); Total Bilirubin 0.7 mg/dL (0.3-1.2)
[2025-04-13 08:49] LABS: HCT 38.8 % (39.6-50.0); HGB 12.7 g/dL (13.0-17.0); MCH 27.7 pg (27.0-32.0); MCHC 32.7 g/dL (32.0-37.0); MCV 84.7 FL (80.0-97.0); Mean Platelet Volume 10.7 FL (9.5-12.2); NRBC Per 100 WBC 0 X 10*3/uL (0.00-0.01); Platelet Count 469 X 10*3/uL (140-440); RBC 4.58 X 10*6/uL (4.40-5.60); RDW 15.6 % (11.5-14.5); WBC 12.79 X 10*3/uL (4.50-10.00)
[2025-04-13 11:44] LABS: Glucose,Whole Blood 132 mg/dL (70-110)
--- NOTE | 2025-04-13 12:53 | P.PN ---
Subjective Progress Note Date: 04/13/25 Principal diagnosis: Reason for follow-up is positive blood culture and UTI Patient is a 69-year-old male with a past medical history significant for diabetes mellitus hypertension hyperlipidemia in this patient who recently did have a prostate biopsy on April 04, 2025 patient subsequently started having fever and chills weakness and difficulty voiding presented to the ER did have a positive UA abnormal x-ray was diagnosed with pneumonia discharged home on lower antibiotic blood cultures came back positive with gram-positive bacilli for the patient has been readmitted. On today's evaluation that is 04/13/2025,the patient remains to be afebrile, patient is on room air not requiring supplemental oxygen and denies any shortness of breath no chest pain or cough.Patient denies having any nausea or vomiting, no abdominal pain and no diarrhea has been reported patient did have Hi catheter insertion as he was unable to urinate after discontinuation yesterday. Patient white count is down to 12.79, creatinine 0.8 repeat blood culture have been negative Objective - Vital Signs Vital signs: Vital Signs Temp 98.8 F 04/13/25 07:14 Pulse 74 04/13/25 07:14 Resp 16 04/13/25 07:14 BP 114/67 04/13/25 07:14 Pulse Ox 94 L 04/13/25 07:14 FiO2 21 04/11/25 08:31 Intake & Output 04/12/25 04/13/25 04/13/25 18:59 06:59 18:59 Output Total 1100 2000 Balance -1100 -2000 Output: Urine 1100 2000 Straight 900 Uretheral (Hi) 850 Other: Voiding Method Indwelling Catheter # Bowel Movements 1 - Exam GENERAL DESCRIPTION: An elderly male lying in bed in no distress RESPIRATORY SYSTEM: Unlabored breathing , decreased breath sounds at bases HEART: S1 S2 regular rate and rhythm , ABDOMEN: Soft , no tenderness EXTREMITIES: No edema feet - Labs CBC & Chem 7: 04/13/25 02:56 04/13/25 02:56 Labs: Abnormal Lab Results - Last 24 Hours (Table) 04/12/25 04/12/25 04/12/25 Range/Units 11:22 16:46 20:50 WBC (4.50-10.00) X 10*3/uL Hgb (13.0-17.0) g/dL Hct (39.6-50.0) % RDW (11.5-14.5) % Plt Count (140-440) X 10*3/uL Anion Gap (4.00-12.00) mmol/L Glucose (70-110) mg/dL POC Glucose (mg/dL) 148 H 138 H 145 H (70-110) mg/dL AST (14-35) U/L ALT (10-49) U/L Total Protein (6.2-8.2) g/dL Albumin (3.8-4.9) g/dL Albumin/Globulin Ratio (1.60-3.17) Ratio 04/13/25 04/13/25 04/13/25 Range/Units 02:56 02:56 06:45 WBC 12.79 H (4.50-10.00) X 10*3/uL Hgb 12.7 L (13.0-17.0) g/dL Hct 38.8 L (39.6-50.0) % RDW 15.6 H (11.5-14.5) % Plt Count 469 H (140-440) X 10*3/uL Anion Gap 12.50 H (4.00-12.00) mmol/L Glucose 144 H (70-110) mg/dL POC Glucose (mg/dL) 138 H (70-110) mg/dL AST 47 H (14-35) U/L ALT 90 H (10-49) U/L Total Protein 6.0 L (6.2-8.2) g/dL Albumin 3.5 L (3.8-4.9) g/dL Albumin/Globulin Ratio 1.40 L (1.60-3.17) Ratio Microbiology - Last 24 Hours (Table) 04/11/25 06:27 Blood Culture - Preliminary Blood Assessment and Plan (1) Bacteremia Current Visit: Yes Status: Acute Code(s): R78.81 - BACTEREMIA SNOMED Code(s): 5844290 (2) UTI (urinary tract infection) Current Visit: Yes Status: Acute Code(s): N39.0 - URINARY TRACT INFECTION, SITE NOT SPECIFIED SNOMED Code(s): 30126251 Plan: 1patient presented to hospital with positive blood culture from her recent ER visit with the patient presented mostly with a urinary symptom and did have recent prostate biopsy highly suspicious for urinary source for dizziness rather than pneumonia he is not growing gram positive anaerobe bacilli which is likely skin contamination rather than true pathogen 2blood cultures has been repeated which are currently pending 3patient seen to have shown some clinical improvement, the patient Hi catheter has been assisted as the patient was not able to urinate and did have a significant postvoid residual patient white count is trending down repeat blood culture have been negative we will recommend a short course of oral Augmentin on discharge discussed with SHIPPING CHECKER for admitting team Dictation was produced using [employer] dictation software. please excuse any grammatical, word or spelling errors.
--- NOTE | 2025-04-13 13:28 | P.PN ---
Subjective Progress Note Date: 04/13/25 Principal diagnosis: Urinary retention The patient is a 69-year-old white male who developed difficulty voiding and chills following prostate biopsies. He was found to be in urinary retention, and a Hi catheter was placed. Blood cultures have shown anaerobic gram- positive bacilli, likely a skin contaminant. He is receiving Zosyn and his condition has improved. The Hi catheter was removed yesterday for a voiding trial, but he experienced difficulty voiding once again. He was straight catheterized twice with returns up to 1600 cc prior to Hi catheter replacement. He is comfortable at this time. Objective - Vital Signs Vital signs: Vital Signs Temp 98.8 F 04/13/25 07:14 Pulse 74 04/13/25 07:14 Resp 16 04/13/25 07:14 BP 114/67 04/13/25 07:14 Pulse Ox 94 L 04/13/25 07:14 FiO2 21 04/11/25 08:31 Intake & Output 04/12/25 04/13/25 04/13/25 18:59 06:59 18:59 Output Total 1100 2000 Balance -1100 -2000 Output: Urine 1100 2000 Straight 900 Uretheral (Hi) 850 Other: Voiding Method Indwelling Catheter # Bowel Movements 1 - Constitutional General appearance: Present: average body habitus, cooperative, no acute distress - Genitourinary Genitourinary Comment(s): Hi catheter intact, draining clear yellow urine. - Psychiatric Psychiatric: Present: A&O x's 3 - Labs CBC & Chem 7: 04/13/25 02:56 04/13/25 02:56 Labs: Abnormal Lab Results - Last 24 Hours (Table) 04/12/25 04/12/25 04/13/25 Range/Units 16:46 20:50 02:56 WBC 12.79 H (4.50-10.00) X 10*3/uL Hgb 12.7 L (13.0-17.0) g/dL Hct 38.8 L (39.6-50.0) % RDW 15.6 H (11.5-14.5) % Plt Count 469 H (140-440) X 10*3/uL Anion Gap (4.00-12.00) mmol/L Glucose (70-110) mg/dL POC Glucose (mg/dL) 138 H 145 H (70-110) mg/dL AST (14-35) U/L ALT (10-49) U/L Total Protein (6.2-8.2) g/dL Albumin (3.8-4.9) g/dL Albumin/Globulin Ratio (1.60-3.17) Ratio 04/13/25 04/13/25 04/13/25 Range/Units 02:56 06:45 11:43 WBC (4.50-10.00) X 10*3/uL Hgb (13.0-17.0) g/dL Hct (39.6-50.0) % RDW (11.5-14.5) % Plt Count (140-440) X 10*3/uL Anion Gap 12.50 H (4.00-12.00) mmol/L Glucose 144 H (70-110) mg/dL POC Glucose (mg/dL) 138 H 132 H (70-110) mg/dL AST 47 H (14-35) U/L ALT 90 H (10-49) U/L Total Protein 6.0 L (6.2-8.2) g/dL Albumin 3.5 L (3.8-4.9) g/dL Albumin/Globulin Ratio 1.40 L (1.60-3.17) Ratio Microbiology - Last 24 Hours (Table) 04/11/25 06:27 Blood Culture - Preliminary Blood Assessment and Plan (1) UTI (urinary tract infection) Current Visit: Yes Status: Acute Code(s): N39.0 - URINARY TRACT INFECTION, SITE NOT SPECIFIED SNOMED Code(s): 63115618 (2) Retention of urine, unspecified Current Visit: Yes Status: Acute Code(s): R33.9 - RETENTION OF URINE, UNSPECIFIED SNOMED Code(s): 454761430 Plan: I have suggested to the patient that he be discharged home with a Hi catheter. He has chosen to follow-up with me for his urologic care, and arrangements will therefore be made for him to undergo urodynamic testing and cystoscopy in our office in approximately 2 weeks. It is my feeling that he should be discharged home on antibiotics, but I will defer this to Dr. Venegas.
[2025-04-13 13:36] VITALS: BP 117/73; PULSE 80; TEMP 97.6
--- NOTE | 2025-04-13 16:48 | P.DS ---
Providers Date of admission: 04/09/25 21:04 Expected date of discharge: 04/13/25 Attending physician: Jerel Victor MD Consults: 04/09/25 21:03 Consult Physician Routine Consulting Provider: Maude Venegas Consult Reason/Comments: bacteremia Do you want consulting provider notified?: Yes 04/10/25 09:21 Consult Physician Routine Consulting Provider: Juan Taylor Consult Reason/Comments: pelvic pain s/p prostate biopsy Do you want consulting provider notified?: Yes [facility] Course: Discharge Diagnosis: Bacteremia. Repeat blood cultures negative. Discussed in detail with infectious disease physician, he is in agreement with plan discharge for patient but recommending continuation of oral antibiotics with Augmentin 875/125 mg tablets every 12 hours for an additional 7 days to complete an antibiotic treatment course of 10 days for complicated UTI along with questionable bacteremia. Complicated UTI Urinary retention. Patient had Nicholas catheter placed and later removed on 04/12/2025, voiding challenge was completed and patient continued to have significant retention with postvoid residual measuring up to 1600 cc resulting in a straight catheterization followed by replacing Nicholas catheter at this time. Patient discharged home with Nicholas catheter in place and to follow-up outpatient with urologist in office in 2 weeks for cystoscopy. Enlarged prostate, status post prostate biopsies 04/04/2025 Leukocytosis, improving WBC on discharge 12.79. Transaminitis Hypokalemia. Resolved. Hypertension Diabetes mellitus with hyperglycemia Hyperlipidemia Hospital Course: Patient is a very pleasant 69-year-old male with a past medical history of hyp ertension, hyperlipidemia, [id number] diabetes mellitus, and enlarged prostate currently undergoing evaluation for prostate prostate cancer with biopsies completed 04/04/2025. He returned to the hospital on 04/09/2025 after receiving a phone call that his blood culture was positive for bacteria. Patient was recently evaluated in the emergency department 2 days prior with complaints of pelvic pain, urinary retention, and constant urination/dribbling since prostate biopsy and was diagnosed with a UTI. At that time patient had blood cultures drawn and received a call from the emergency department that he needed to return because his blood culture was positive. Upon arrival to our facility, patient underwent evaluation in the emergency department. Vital signs upon arrival show blood pressure 150/76, heart rate 70, respiratory rate 18, temp 97.4 F, and SpO2 of 96% on room air. Labs completed and reviewed. CBC showing leukocytosis with WBC count of 13.00 with immature granulocytes of 0.13, neutrophils of 10.18, monocytes of 1.39, and basophils of 0.16. Coagulation profile normal findings. BMP showing high anion gap metabolic acidosis with chloride of 103, bicarb of 21, and anion gap of 15 with mild prerenal azotemia with BUN of 26 otherwise normal findings. Blood glucose was 179. Lactic acid was 1.6. Calcium was elevated at 10.6. Magnesium 2.1. Liver profile showing transaminitis with AST of 136, ALT of 139, and alkaline phosphatase of 107. Troponin was negative at less than 0.012. CRP was elevated at 15.3. Urinalysis positive for glucose, moderate blood, and 73 RBCs but negative for infection. Blood culture drawn 04/08/2025 showing positive for anaerobic gram-positive bacilli. Repeat blood cultures obtained at time of admission. Chest x-ray negative for acute cardiopulmonary process. Abdominal ultrasound showing hepatic steatosis but negative for acute intra-abdominal process. Patient was admitted under services with consultation to infectious disease and urology. He received a 3-day course of IV antibiotics with Zosyn. He was evaluated by urology and infectious. Patient had Nicholas catheter placed on day of admission and later removed on 04/12/2025, voiding challenge was completed and patient continued to have significant retention with postvoid residual measuring up to 1600 cc resulting in a straight catheterization followed by replacing Nicholas catheter at this time. Patient discharged home with Nicholas catheter in place and to follow-up outpatient with urologist in office in 2 weeks for cystoscopy. Repeat blood cultures negative. Discussed in detail with infectious disease physician, he is in agreement with plan discharge for patient but recommending continuation of oral antibiotics with Augmentin 875/125 mg tablets every 12 hours for an additional 7 days to complete an antibiotic treatment course of 10 days for complicated UTI along with questionable bacteremia. Physical exam: Patient was seen and fully evaluated at bedside this morning. He reports feeling well today and currently free from any complaints at this time. Pt updated that we continue to await repeat blood culture results and final cullture and sensitivy results on previous blood culture so plan to continue with IV antibiotics with zosyn pending these results. Pt in agreement and denies any further questions, needs, or concerns at this time. His nicholas catheter was removed this morning and pt undergoing voiding challenge, he states it was just removed so he has not yet urinated. Vital signs reviewed and stable. General: Nontoxic, no distress and appears stated age. Derm: Skin warm and dry, normal coloration for ethnicity. Head: Atraumatic, normocephalic and symmetric. Eyes: EOM's intact, no lid lag, and anicteric sclera Mouth: no lip lesions, mucus membranes moist Cardiovascular: regular rate and rhythm with normal S1S2, no murmur, positive posterior tibial pulses bilaterally, and cap refill < 2 seconds. Lungs: Respirations even, regular, and unlabored on room air. Lungs CTA bilaterally, no rhonchi, no rales, no wheezing, and no accessory muscle usage. Abdominal: soft, nontender to palpation, no guarding, no appreciable organomegaly. Ext: ROM intact. No gross muscle atrophy, no edema, no contractures Neuro: Speech clear, face symmetrical and CN II-XII grossly intact with no noted focal neuro deficits Psych: Alert and oriented to person, place, time, and situation. Appropriate and pleasant affect. A total of 37 minutes of time were spent preparing this complex discharge summary. Pt was discharged on 04/13/2025 at 2:46 PM Patient was seen independently by Nurse Practitioner. This document was prepared using [employer] dictation software. Please allow for errors in telephone clerk telegraph office while rare they do occur. Regan Lugo NP rendered care for this patient independently, reviewed the findings and plan as documented in the note above. I did not physically speak with or examine the patient on this date. Patient Condition at Discharge: Stable Plan - Discharge Summary Discharge Rx Participant: No New Discharge Prescriptions: New Amoxic-Pot Clav 875-125Mg [Augmentin 875-125] 1 tab PO Q12HR 7 Days #14 tab Continue Telmisartan [Micardis] 40 mg PO DAILY PRN PRN Reason: Blood Pressure - High Sildenafil Citrate 100 mg PO DAILY PRN PRN Reason: E.D hydroCHLOROthiazide [Hydrodiuril] 12.5 mg PO DAILY Atorvastatin [Lipitor] 20 mg PO HS metFORMIN HCL [Glucophage] 500 mg PO DAILY Silodosin [Rapaflo] 8 mg PO DAILY Discharge Medication List Atorvastatin [Lipitor] 20 mg PO HS 04/10/25 [History] Sildenafil Citrate 100 mg PO DAILY PRN 04/10/25 [History] Silodosin [Rapaflo] 8 mg PO DAILY 04/10/25 [History] Telmisartan [Micardis] 40 mg PO DAILY PRN 04/10/25 [History] hydroCHLOROthiazide [Hydrodiuril] 12.5 mg PO DAILY 04/10/25 [History] metFORMIN HCL [Glucophage] 500 mg PO DAILY 04/10/25 [History] Amoxic-Pot Clav 875-125Mg [Augmentin 875-125] 1 tab PO Q12HR 7 Days #14 tab 04/13/25 [Rx] Follow up Appointment(s)/Referral(s): Juan Taylor MD [STAFF PHYSICIAN] - 1 Week (will call patient to set appiontment) Jaxon Esparza DO [Primary Care Provider] - 05/02/25 2:20 am (scheduled in [place] offices) Maude Venegas MD [STAFF PHYSICIAN] - 1 Week (no answer patient is to call and set appiontment 1 week out) Patient Instructions/Handouts: Urinary Retention in Men (GEN), Urinary Tract Infection in Men (DC), Nicholas Catheter Placement and Care (DC), Bacteremia (DC) Activity/Diet/Wound Care/Special Instructions: Activity: As tolerated. Take breaks as needed. Diet: Heart healthy and carb consistent diet. Special Instructions: Take all of your medications as directed and remember to keep all of your doctor's appointments and follow-up as needed. Thank you for allowing us to participate in your care, it was truly a pleasure having you for our patient!!! Discharge Disposition: HOME SELF-CARE
== END 2025-04-13 16:35 | disposition home or self-care (01) | DRG 690 ==
LOC: EC 20:11 → 4SSUR 21:04
PROVIDERS: ADMIT Internal Medicine; ATTEND Internal Medicine
DX: N39.0 Urinary tract infection, site not specified (principal); R78.81 Bacteremia; E87.20 Acidosis, unspecified; C61 Malignant neoplasm of prostate; E11.65 Type 2 diabetes mellitus with hyperglycemia; I10 Essential (primary) hypertension; K62.5 Hemorrhage of anus and rectum; E83.52 Hypercalcemia; E78.5 Hyperlipidemia, unspecified; N40.0 Benign prostatic hyperplasia without lower urinary tract symptoms; Z87.891 Personal history of nicotine dependence; Z79.899 Other long term (current) drug therapy; E87.6 Hypokalemia; Z79.84 Long term (current) use of oral hypoglycemic drugs
CPT/HCPCS: 36415; 71046; 76700; 76857; 80053; 81001; 83036; 83605; 83735; 84100; 84484; 85025; 85027; 85610; 85730; 86140; 87040; 93005; 94760; 96361; 96365; 96366; 99285